=== PATIENT | male | born 1955 | race Caucasian/White ===

== ENCOUNTER → 2017-02-25 | Outpatient (CLI) | payer OTHER, MEDICARE ==
--- NOTE | 2017-02-25 15:31 | CT ---
EXAMINATION TYPE: CT brain wo con DATE OF EXAM: 02/25/2017 2:35 PM COMPARISON: NONE HISTORY: Dizziness CT DLP: 1121 mGycm Automated exposure control for dose reduction was used. FINDINGS: There is no acute intracranial hemorrhage, mass effect, or midline shift identified. The ventricles and sulci are within normal limits in size. The globes are intact and the visualized sinuses are brenda wing air-fluid level in the left maxillary sinus, mucosal thickening in the right maxillary sinus, et hmoid air cells and sphenoid. IMPRESSION: No acute intracranial hemorrhage, mass effect, or midline shift is seen. Sinusitis
--- NOTE | 2017-02-26 11:32 | ECHOF ---
Referral Reason:TIA G45.9, ABN EKG R94.31 MEASUREMENTS -------- HEIGHT: 180.3 cm WEIGHT: 81.6 kg BP: IVSd: 1.2 cm (0.6 - 1.1) LVIDd: 4.8 cm (3.9 - 5.3) LVPWd: 1.5 cm (0.6 - 1.1) IVSs: 2.0 cm LVIDs: 2.6 cm LVPWs: 2.1 cm Ao Diam: 2.8 cm (2.0 - 3.7) AV Cusp: 2.1 cm (1.5 - 2.6) LA Diam: 2.8 cm (2.7 - 3.8) MV EXCURSION: 12.364 mm (> 18.000) MV EF SLOPE: 50 mm/s (70 - 150) EPSS: 0.5 cm MV E Chandan: 1.21 m/s MV DecT: 220 ms MV A Chandan: 0.70 m/s MV E/A Ratio: 1.72 RAP: 5.00 mmHg RVSP: 17.47 mmHg FINDINGS -------- Sinus rhythm. This was a technically good study. The left ventricular size is normal. There is mild concentric left ventricular hypertrophy. Overall left ventricular systolic function is normal with, an EF between 55 - 60 %. The right ventricle is normal in size and function. The left atrium is normal in size. The right atrium is normal in size. The aortic valve is trileaflet, and appears structurally normal. No aortic stenosis or regurgitation. The mitral valve leaflets are mildly thickened. Mild mitral regurgitation is present. Mild prolapse of the posterior mitral valve leaflet. The tricuspid valve appears structurally normal. Mild tricuspid regurgitation present. The right ventricular systolic pressure, as measured by Doppler, is 17.47mmHg. There is no pulmonic regurgitation present. There is no pericardial effusion. CONCLUSIONS -------- 1. Sinus rhythm. 2. Mild tricuspid regurgitation present. 3. The right ventricular systolic pressure, as measured by Doppler, is 17.47mmHg. 4. There is no pulmonic regurgitation present. 5. There is no pericardial effusion. 6. This was a technically good study. 7. There is mild concentric left ventricular hypertrophy. 8. Overall left ventricular systolic function is normal with, an EF between 55 - 60 %. 9. The left atrium is normal in size. 10. The aortic valve is trileaflet, and appears structurally normal. No aortic stenosis or regurgitation. 11. The mitral valve leaflets are mildly thickened. 12. Mild mitral regurgitation is present. 13. Mild prolapse of the posterior mitral valve leaflet. SPONGE PRESS OPERATOR: Leta Lo RDCS
--- NOTE | 2017-03-06 07:59 | US ---
EXAMINATION TYPE: US carotid duplex BILAT DATE OF EXAM: 02/25/2017 2:08 PM COMPARISON: NONE CLINICAL HISTORY: 61-year-old male TIA G45.9, Abn EKG R94.31. TECHNIQUE: Duplex carotid ultrasound. Indirect Doppler criteria was utilized. FINDINGS: Sparks scale images show moderate atherosclerotic change at the right bifurcation and mild on the left. EXAM MEASUREMENTS: RIGHT: Peak Systolic Velocity (PSV) cm/sec ----- Right CCA: 70.2 ----- Right ICA: 248.6 ----- Right ECA: 200.4 ICA/CCA ratio: 3.5 RIGHT: End Diastole cm/sec ----- Right CCA: 18.5 ----- Right ICA: 80.5 ----- Right ECA: 30.4 LEFT: Peak Systolic Velocity (PSV) cm/sec ----- Left CCA: 88.7 ----- Left ICA: 91.9 ----- Left ECA: 143.6 ICA/CCA ratio: 1.0 LEFT: End Diastole cm/sec ----- Left CCA: 25.7 ----- Left ICA: 38.6 ----- Left ECA: 20.8 VERTEBRALS (direction of flow): Right Vertebral: Antegrade Left Vertebral: Antegrade IMPRESSION: There may be a severe proximal ICA stenosis on the right. Further CT angiographic evaluation should b e considered. Criteria for Assigning % of Stenosis / Diameter reduction (Estimation based on the indirect measurements of the internal carotid artery velocities (ICA PSV). 1. Normal (no stenosis)=ICA PSV < 125 cm/s: ratio < 2.0: ICA EDV<40 cm/s. 2. Less than 50% stenosis=ICA PSV < 125 cm/s: ratio < 2.0: ICA EDV<40 cm/s. 3. 50 to 69% stenosis=ICA PSV of 125 to 230 cm/s: ration 2.0 ? 4.0: ICA EDV 40-100 cm/s. 4. Greater than 70% stenosis to near occlusion= ICA PSV > 230 cm/s: ratio > 4.0: ICA EDV > 100 cm/s. 5. Near occlusion= ICA PSV velocities may be low or undetectable: variable ratio and ICA EDV. 6. Total occlusion=unable to detect flow.
== END ==
LOC: RADCTMAIN 13:20
PROVIDERS: ATTEND Family Medicine
DX: I07.1 Rheumatic tricuspid insufficiency (principal); I34.0 Nonrheumatic mitral (valve) insufficiency; I34.1 Nonrheumatic mitral (valve) prolapse; G45.9 Transient cerebral ischemic attack, unspecified
CPT/HCPCS: 70450; 93306; 93880

== ENCOUNTER → 2017-03-04 | Day surgery (SDC) | payer OTHER, MEDICARE ==
[2017-02-23 11:38] VITALS: BMI 25.1
[~2017-03-04] MED LIST: BUPIVACAIN-EPI 0.25%-1:200,000 30 ML VIAL SQ ONE; DEXAMETHASONE SOD PHOSPHATE 10 MG/ML 1 ML VIAL IV ONE; GLYCOPYRROLATE 0.2 MG/ML 2 ML VIAL ONE; HEPARIN SODIUM,PORCINE 5,000 UNIT/ML 1 ML VIAL SQ ONE; HYDROcodone/APAP 7.5-325MG 1 EACH TAB PO ONE; HYDROmorphone (PF) 1 MG/ML ONE; KETOROLAC 30 MG/ML 1 ML VIAL ONE; LACTATED RINGERS 1,000 ML IV ONE; LIDOCAINE 1% INJ 10MG/ML (20 ML MDV) ONE; MIDAZOLAM 2 MG/2 ML VIAL IV PRN; MIDAZOLAM 2 MG/2 ML VIAL ONE; NEOSTIGMINE 1 MG/ML 10 ML VIAL ONE; ONDANSETRON 4 MG/2 ML VIAL IVP ONE; PROPOFOL 10 MG/ML 20 ML VIAL IV ONE; ROCURONIUM BROMIDE 10 MG/ML 10 ML VIAL IV ONE; SCOPOLAMINE 1.5MG/72HR PATCH TRANSDERM ONE; SUCCINYLCHOLINE CHLORIDE 100 MG/5 ML SYR IV ONE; ceFAZolin 2 GM in SODIUM CHLORIDE 0.9% 100 ML IVPB ONE; fentaNYL (PF) 50 MCG/ML 2 ML AMP ONE
[2017-03-04] MEDS: LACTATED RINGERS 1,000 ML IV SCH ×2 (09:23→09:24)
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
--- NOTE | 2017-03-04 11:07 | P.OP ---
Date of Procedure: 03/04/17 Preoperative Diagnosis: Incarcerated umbilical hernia Left inguinal hernia Postoperative Diagnosis: Incarcerated hernia Left inguinal hernia Procedure(s) Performed: Laparoscopic repair of incarcerated umbilical hernia Laparoscopic robotic system repair of left inguinal hernia Anesthesia: CHARISSE Surgeon: Charly Block Estimated Blood Loss (ml): 5 Pathology: other (Incarcerated omentum) Condition: stable Disposition: PACU Description of Procedure: The patient was placed on the operating table in the supine position. The patient received general anesthesia. The patient's abdomen was prepped and draped in usual sterile fashion. The skin was anesthetized 1% local Xylocaine at the incision sites. Using an 11 blade a skin incision was made at the umbilicus. There was incarcerated omentum at the umbilicus. This was dissected free with the sac using the electrocautery. Once the umbilical hernia was dissected. A 12 mm trocar was placed through the umbilical hernia. Into the peritoneal cavity.. The laparoscope was placed into the pleural cavity.. And a robotic 8 mm trocar was placed in the right lateral position and then another 8 mm robotic trochars placed in the left lateral position. The original 5 mm trocar was exchanged for a 12 mm trocar. The patient was placed in reverse Trendelenburg and then the patient was docked to the robot. Next the peritoneum over top of the hernia was incised and then using blunt and sharp dissection and electrocautery the hernia sac was dissected free from the floor of the inguinal canal. The hernia sac was completely reduced into the peritoneal cavity. And then using the Pro final inspector shuttle mesh the hernia was repaired. The peritoneum was then sutured with 20V lock suture. The patient was then undocked the robot. The needle was withdrawn from the peritoneal cavity. The umbilical hernia was closed using 0 Ethibond suture and Sean Carrero suture passer. The skin was closed interrupted 3-0 Monocryl suture. Dermabond dressing was applied. Patient was sent to recovery in stable condition.
[2017-03-04 11:25] VITALS: TEMP 98.9
[2017-03-04] MEDS: HYDROmorphone 1 MG/ML 1 ML SYRINGE IVP PRN ×2 (11:33→11:40)
[2017-03-04] MEDS: MEPERIDINE 50 MG/ML SYRINGE IVP ONE ×2 (11:46→11:55)
[2017-03-04 12:57] VITALS: RESP 18
[2017-03-04 14:28] VITALS: BP 168/74; PULSE 62
== END | disposition home or self-care (01) ==
LOC: OR 08:20
PROVIDERS: ATTEND Surgery
DX: K42.0 Umbilical hernia with obstruction, without gangrene (principal); K40.90 Unilateral inguinal hernia, without obstruction or gangrene, not specified as recurrent; I77.9 Disorder of arteries and arterioles, unspecified; Z79.82 Long term (current) use of aspirin; Z79.899 Other long term (current) drug therapy; Z88.5 Allergy status to narcotic agent; Z91.041 Radiographic dye allergy status
CPT/HCPCS: 49587; 49650; S2900; 88302; 88305

== ENCOUNTER 2017-07-13 07:54 | Day surgery (SDC) | payer OTHER, MEDICARE ==
[2017-07-10 09:30] VITALS: BMI 25.1
[~2017-07-13 07:54] MED LIST changes: -BUPIVACAIN-EPI 0.25%-1:200,000 30 ML VIAL SQ ONE; -DEXAMETHASONE SOD PHOSPHATE 10 MG/ML 1 ML VIAL IV ONE; -GLYCOPYRROLATE 0.2 MG/ML 2 ML VIAL ONE; -HEPARIN SODIUM,PORCINE 5,000 UNIT/ML 1 ML VIAL SQ ONE; -HYDROcodone/APAP 7.5-325MG 1 EACH TAB PO ONE; -HYDROmorphone (PF) 1 MG/ML ONE; -KETOROLAC 30 MG/ML 1 ML VIAL ONE; -LACTATED RINGERS 1,000 ML IV ONE; +LACTATED RINGERS 1,000 ML IV SCH; -LIDOCAINE 1% INJ 10MG/ML (20 ML MDV) ONE; -MIDAZOLAM 2 MG/2 ML VIAL IV PRN; -MIDAZOLAM 2 MG/2 ML VIAL ONE; -NEOSTIGMINE 1 MG/ML 10 ML VIAL ONE; -ONDANSETRON 4 MG/2 ML VIAL IVP ONE; -PROPOFOL 10 MG/ML 20 ML VIAL IV ONE; -ROCURONIUM BROMIDE 10 MG/ML 10 ML VIAL IV ONE; -SCOPOLAMINE 1.5MG/72HR PATCH TRANSDERM ONE; -SUCCINYLCHOLINE CHLORIDE 100 MG/5 ML SYR IV ONE; -ceFAZolin 2 GM in SODIUM CHLORIDE 0.9% 100 ML IVPB ONE; -fentaNYL (PF) 50 MCG/ML 2 ML AMP ONE
[2017-07-13 08:04] VITALS: RESP 18; TEMP 98
[2017-07-13] MEDS ORDERED: LIDOCAINE 1% 20 ML VIAL (10MG/ML) FOR IV START INTRADERMA ONE (08:05)
[2017-07-13] MEDS ORDERED: PROPOFOL 10 MG/ML 20 ML VIAL IV ONE (09:42)
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
--- NOTE | 2017-07-13 09:56 | P.OP ---
Date of Procedure: 07/13/17 Preoperative Diagnosis: Screening colonoscopy Postoperative Diagnosis: Diverticulosis Hemorrhoids Procedure(s) Performed: Colonoscopy Implants: Anesthesia: MAC Surgeon: Charly Block Pathology: none sent Condition: stable Disposition: PACU Indications for Procedure: Operative Findings: Description of Procedure: Patient's placed on the endoscopy table in the lateral position. He received IV sedation. Digital rectal exam was performed which revealed mild external hemorrhoids. The flexible colonoscope was then placed patient anus and passed throughout the entire colon. The ileocecal valve was visualized. The cecum, ascending and transverse colon appeared normal. In the descending and sigmoid colon there is mild diverticular changes. There is no evidence of to diverticulitis. The scope was then brought back the rectum and this appeared normal. Scope was withdrawn from the patient.
[2017-07-13 10:42] VITALS: BP 201/98; PULSE 51
== END 2017-07-13 10:49 | disposition home or self-care (01) ==
LOC: ORWHC2ENDO 07:54
PROVIDERS: ATTEND Surgery
DX: Z12.11 Encounter for screening for malignant neoplasm of colon (principal); K57.30 Diverticulosis of large intestine without perforation or abscess without bleeding; K64.4 Residual hemorrhoidal skin tags; M54.9 Dorsalgia, unspecified; M25.569 Pain in unspecified knee; G89.29 Other chronic pain; Z91.041 Radiographic dye allergy status
CPT/HCPCS: J2704; G0121; 45378

== ENCOUNTER → 2018-09-01 | Outpatient (CLI) | payer OTHER, MEDICARE ==
--- NOTE | 2018-09-01 14:56 | MM ---
Reason for exam: clinical finding. Baseline mammogram. History: Family history of breast cancer in maternal grandmother at age 54. Indicated problem(s): lump or thickening in the right breast. Physical Findings: Nurse Summary: 1cm nodule in the right breast at 12 o'clock (nurse mj). MG 3D Diag Mammo W/Cad MELLO Bilateral CC and MLO view(s) were taken. There are scattered fibroglandular densities. Asymmetric flamed shaped subareolar density on the right. This corresponds to the palpable site. 5mm mass posteriorly 3-4 o'clock left breast. Similar smaller finding on the right. These seem to be reniform in shape suggesting small lymph nodes. These results were verbally communicated with the patient and result sheet given to the patient on 09/01/18. ASSESSMENT: Incomplete: need additional imaging evaluation, BI-RAD 0 RECOMMENDATION: Ultrasound of both breasts. MTDD
--- NOTE | 2018-09-01 15:01 | USB ---
Reason for exam: additional evaluation requested from abnormal screening. History: Family history of breast cancer in maternal grandmother at age 54. US Breast BILAT Right complete breast ultrasound includes all four quadrants, the retroareolar region and axilla. Finding demonstrates a 0.5cm tiny lymph node compatible with mammographic finding and a 1.0 x 0.4 x 1.2cm irregular hypoechoic area compatible with gynecomastia seen on ultrasound. Left complete breast ultrasound includes all four quadrants, the retroareolar region and axilla. Finding demonstrates a 0.3 x 0.2 x 0.4cm small benign node, compatible with mammographic finding at 3 o'clock and at axilla. These results were verbally communicated with the patient and result sheet given to the patient on 09/01/18. ASSESSMENT: Benign, BI-RAD 2 RECOMMENDATION: Clinical management of asymmetric right sided gynecomastia which corresponds to the clinically palpable site. GAYED
== END | disposition home or self-care (01) ==
LOC: RADMAMWWP 13:06
PROVIDERS: ATTEND Family Medicine
DX: N63.0 Unspecified lump in unspecified breast (principal)
CPT/HCPCS: 77062; 77066

== ENCOUNTER 2021-08-10 10:05 | Inpatient (IN) | payer MEDICARE, BC ==
[2021-08-10 10:37] LABS: Glucose,Whole Blood 111 mg/dL (75-99)
[2021-08-10] MEDS ORDERED: SODIUM CHLORIDE 0.9% 1,000 ML IV STA (10:39)
[2021-08-10] MEDS ORDERED: ONDANSETRON 4 MG/2 ML VIAL IVP STA (10:43)
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
[2021-08-10 11:16] LABS: Basophils # (A) 0.1 k/uL (0-0.2); Basophils % (A) 1 %; Eosinophils % (A) 0 %; HCT 46.3 % (39.0-53.0); HGB 15.5 gm/dL (13.0-17.5); Lymphocytes # (A) 0.7 k/uL (1.0-4.8); Lymphocytes % (A) 9 %; MCH 29.9 pg (25.0-35.0); MCHC 33.5 g/dL (31.0-37.0); MCV 89.4 fL (80.0-100.0); Mean Platelet Volume 8.5; Monocytes # (A) 0.4 k/uL (0-1.0); Monocytes % (A) 5 %; Neutrophils # (A) 6.7 k/uL (1.3-7.7); Neutrophils % (A) 84 %; Platelet Count 232 k/uL (150-450); RBC 5.18 m/uL (4.30-5.90); RDW 13.4 % (11.5-15.5)
[2021-08-10 11:17] LABS: Appearance,Urine Clear (Clear); Bacteria,Urine Rare /hpf; Bilirubin,Urine Negative (Negative); Blood,Urine Trace (Negative); Color,Urine Light Yellow; Glucose,Urine (UA) 1+ (Negative); Ketones,Urine Negative (Negative); Leukocyte Esterase,Urine Negative (Negative); Mucus,Urine Rare /hpf; Nitrite,Urine Negative (Negative); PH, Urine 6.5 (5.0-8.0); Protein,Urine 1+ (Negative); RBC,Urine 1 /hpf (0-5); Specific Gravity,Urine 1.013 (1.001-1.035); Squamous Epithelial Cell,Urine <1 /hpf (0-4); Urobilinogen,Urine <2.0 mg/dL (<2.0); WBC,Urine <1 /hpf (0-5)
[2021-08-10 11:24] LABS: ALT 16 U/L (4-49); AST 30 U/L (17-59); African American GFR (CKD) >90 (>60 ml/min/1.73 sqM); Albumin 4.6 g/dL (3.5-5.0); Alcohol <10 mg/dL; Alkaline Phosphatase 95 U/L (38-126); Anion Gap 10 mmol/L; Blood Urea Nitrogen 10 mg/dL (9-20); Carbon Dioxide 26 mmol/L (22-30); Chloride 103 mmol/L (98-107); Glucose 118 mg/dL (74-99); Magnesium 2.4 mg/dL (1.6-2.3); Non-African American GFR(CKD) 84 (>60 ml/min/1.73 sqM); Potassium 3.8 mmol/L (3.5-5.1); Sodium 139 mmol/L (137-145); Total Protein 7.7 g/dL (6.3-8.2)
[2021-08-10 11:43] LABS: Amphetamine Screen,Urine Not Detected (NotDetected); Cocaine Screen,Urine Not Detected (NotDetected); Opiate Screen,Urine Not Detected (NotDetected); Phencyclidine Screen,Urine Not Detected (NotDetected); Urn Cannabinoid Scrn Detected (NotDetected)
[2021-08-10 11:44] LABS: Barbiturate Screen,Urine Not Detected (NotDetected); Benzodiazepines Screen,Urine Detected (NotDetected); Methadone Screen, Urine Not Detected (NotDetected); Oxycodone Screen, Urine Not Detected (NotDetected); Tricyclic Antidepressant,Urine Not Detected (NotDetected)
--- NOTE | 2021-08-10 12:03 | XR ---
EXAMINATION TYPE: XR chest 2V DATE OF EXAM: 08/10/2021 COMPARISON: Chest x-ray May 06, 2013 HISTORY: Cough and seizure. TECHNIQUE: Frontal and lateral views of the chest are obtained. FINDINGS: There is no suspicious new focal air space opacity, pleural effusion, or pneumothorax seen . The cardiac silhouette size is now enlarged. The osseous structures are intact. IMPRESSION: Cardiomegaly without acute pulmonary process.
--- NOTE | 2021-08-10 12:04 | CT ---
EXAMINATION TYPE: CT brain wo con DATE OF EXAM: 08/10/2021 HISTORY: seizure CT DLP: 1041.4 mGycm. Automated Exposure Control for Dose Reduction was Utilized. TECHNIQUE: CT scan of the head is performed without contrast. COMPARISON: CT brain February 25, 2017. FINDINGS: There is no acute intracranial hemorrhage or midline shift identified. There is mild diff use ventricular and sulcal prominence consistent with mild diffuse age-related cerebral atrophy. Sparks -white matter differentiation is maintained. The globes are intact and the visualized sinuses are cl ear. Nasal septum remains deviated to right of midline. IMPRESSION: No acute intracranial hemorrhage or midline shift. No significant change from prior.
[2021-08-10] MEDS ORDERED: ASPIRIN 81 MG PO STA (12:14)
[2021-08-10] MEDS ORDERED: levETIRAcetam IV 500 MG in SODIUM CHLORIDE 0.9% 100 ML IVPB STA (12:34)
[2021-08-10] MEDS ORDERED: ONDANSETRON 4 MG/2 ML VIAL IVP PRN (12:53)
[2021-08-10] MEDS ORDERED: NALOXONE 0.4 MG/ML 1 ML VIAL IV PRN (12:53)
[2021-08-10] MEDS: SODIUM CHLORIDE 0.9% 1,000 ML IV SCH (13:00)
[2021-08-10] MEDS ORDERED: diazePAM 5 MG TAB PO PRN (18:26)
[2021-08-10] MEDS: HYDROcodone/APAP 5-325MG 1 EACH TAB PO PRN (18:37)
--- NOTE | 2021-08-10 18:47 | XR ---
EXAMINATION TYPE: XR foot complete LT DATE OF EXAM: 08/10/2021 CLINICAL HISTORY: New onset seizure, history of metal, clearance for MRI TECHNIQUE: Frontal, lateral, and oblique images of the left foot are obtained. COMPARISON: Left foot radiographs 12/27/2013 FINDINGS: Unchanged appearance of postsurgical changes of the left hindfoot and midfoot with four metallic fixa tion hardware devices with osseous fusion of the midfoot. The anteromedial most device has lucency haynes rrounding the most distal component which may represent loosening. There is planus is present. Unchan ged plaque-like calcifications of the left leg soft tissues adjacent to the fibula. No acute fracture or malalignment. IMPRESSION: 1. Essentially unchanged appearance of four metallic fixation hardware devices of the hindfoot and mi dfoot compared to 2013. 2. Lucency surrounding the distal component of the most anteromedial device which may represent loose anna. This is difficult to evaluate on the prior exam due to single view technique.
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
[2021-08-11] MEDS: HYDROcodone/APAP 5-325MG 1 EACH TAB PO PRN ×2 (00:20→18:03)
[2021-08-11] MEDS: SODIUM CHLORIDE 0.9% 1,000 ML IV SCH ×2 (00:21→11:46)
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
[2021-08-11 09:19] LABS: Basophils % (A) 1 %; Eosinophils # (A) 0.1 k/uL (0-0.7); Eosinophils % (A) 1 %; HCT 40.9 % (39.0-53.0); HGB 13.6 gm/dL (13.0-17.5); Lymphocytes # (A) 1.6 k/uL (1.0-4.8); Lymphocytes % (A) 22 %; MCH 29.8 pg (25.0-35.0); MCHC 33.1 g/dL (31.0-37.0); Mean Platelet Volume 7.8; Monocytes # (A) 0.4 k/uL (0-1.0); Monocytes % (A) 6 %; Neutrophils % (A) 69 %; Platelet Count 231 k/uL (150-450); RBC 4.55 m/uL (4.30-5.90); WBC 7.2 k/uL (3.8-10.6)
[2021-08-11 09:37] LABS: African American GFR (CKD) >90 (>60 ml/min/1.73 sqM); Anion Gap 5 mmol/L; Blood Urea Nitrogen 8 mg/dL (9-20); Calcium 9.1 mg/dL (8.4-10.2); Carbon Dioxide 28 mmol/L (22-30); Chloride 106 mmol/L (98-107); Glucose 117 mg/dL (74-99); Non-African American GFR(CKD) 86 (>60 ml/min/1.73 sqM); Potassium 3.7 mmol/L (3.5-5.1); Sodium 139 mmol/L (137-145)
--- NOTE | 2021-08-11 14:51 | MR ---
EXAMINATION TYPE: MR brain wo/w con DATE OF EXAM: 08/11/2021 COMPARISON: Head CT 08/10/2021 HISTORY: Seizure, hx head injury S/P fall. TECHNIQUE: Multiplanar, multisequence images of the brain and brainstem is performed without and with IV contras t, utilizing 9 mL intravenous Gadavist . FINDINGS: Diffusion weighted images demonstrate no evidence of a recent infarct or other diffusion abnormality. No extra-axial fluid collections. Few scattered foci of nonspecific increased FLAIR/T2 signal in the bilateral subcortical white matter likely chronic small vessel ischemic white matter change. The yuri tricular system and cisternal spaces are normal in size and appearance. The brain volume is age appr opriate. T2*imaging does not demonstrate any areas of chronic microhemorrhage. Midline structures demonstrate normal morphology. The craniocervical junction appears within normal limits. Hippocampi are essentially symmetric in size without abnormal signal. Post contrast images de monstrate no abnormal enhancement. The dural venous sinuses appear patent. Mild right maxillary and e thmoid sinus mucosal thickening. Mastoid air cells are clear. Bilateral globes are symmetric and unre markable. IMPRESSION: 1. No acute intracranial process or abnormal pathologic enhancement. 2. No evidence of mesial temporal sclerosis.
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
[2021-08-11] MEDS: amLODIPine 5 MG TAB PO SCH (23:43)
[2021-08-11] MEDS: HEPARIN SODIUM,PORCINE/PF 5,000 UNIT/0.5 ML SYRINGE SQ SCH ×2 (23:43→23:44)
[2021-08-12] MEDS: ASPIRIN 81 MG PO SCH (08:19)
[2021-08-12] MEDS: HEPARIN SODIUM,PORCINE/PF 5,000 UNIT/0.5 ML SYRINGE SQ SCH ×2 (08:19→15:35)
[2021-08-12 08:37] LABS: Basophils # (A) 0.1 k/uL (0-0.2); Basophils % (A) 1 %; Eosinophils # (A) 0.2 k/uL (0-0.7); Eosinophils % (A) 2 %; HCT 45.9 % (39.0-53.0); HGB 15.3 gm/dL (13.0-17.5); Lymphocytes # (A) 1.9 k/uL (1.0-4.8); Lymphocytes % (A) 24 %; MCH 29.9 pg (25.0-35.0); MCHC 33.4 g/dL (31.0-37.0); MCV 89.7 fL (80.0-100.0); Mean Platelet Volume 8.3; Monocytes # (A) 0.5 k/uL (0-1.0); Monocytes % (A) 7 %; Neutrophils # (A) 5.2 k/uL (1.3-7.7); Neutrophils % (A) 66 %; Platelet Count 251 k/uL (150-450); RBC 5.12 m/uL (4.30-5.90); RDW 13.3 % (11.5-15.5); WBC 7.9 k/uL (3.8-10.6)
[2021-08-12 08:43] LABS: African American GFR (CKD) >90 (>60 ml/min/1.73 sqM); Anion Gap 11 mmol/L; Blood Urea Nitrogen 8 mg/dL (9-20); Calcium 9.7 mg/dL (8.4-10.2); Carbon Dioxide 23 mmol/L (22-30); Chloride 105 mmol/L (98-107); Glucose 142 mg/dL (74-99); Non-African American GFR(CKD) 88 (>60 ml/min/1.73 sqM); Potassium 3.8 mmol/L (3.5-5.1); Sodium 139 mmol/L (137-145)
--- NOTE | 2021-08-12 10:50 | ECHOF ---
Referral Reason:Elevated trop MEASUREMENTS -------- HEIGHT: 182.9 cm WEIGHT: 82.6 kg BP: IVSd: 1.4 cm (0.6 - 1.1) LVIDd: 4.9 cm (3.9 - 5.3) LVPWd: 1.8 cm (0.6 - 1.1) IVSs: 1.8 cm LVIDs: 3.5 cm LVPWs: 1.6 cm LA Diam: 3.7 cm (2.7 - 3.8) LAESV Index (A-L): 43.82 ml/m Ao Diam: 3.5 cm (2.0 - 3.7) AV Cusp: 1.9 cm (1.5 - 2.6) MV EXCURSION: 15.965 mm (> 18.000) MV EF SLOPE: 60 mm/s (70 - 150) EPSS: 0.3 cm MV E Chandan: 1.13 m/s MV DecT: 262 ms MV A Chandan: 0.74 m/s MV E/A Ratio: 1.53 RAP: 5.00 mmHg RVSP: 18.32 mmHg FINDINGS -------- Sinus rhythm. This was a technically good study. The left ventricular size is normal. There is moderate concentric left ventricular hypertrophy. O verall left ventricular systolic function is low-normal with, an EF between 50 - 55 %. The right ventricle is normal in size. LA is severely dilated >40 ml/m2 The right atrial size is normal. The aortic valve is trileaflet, and appears structurally normal. No aortic stenosis or regurgitation. Mild mitral regurgitation is present. Mild tricuspid regurgitation present. Right ventricular systolic pressure is normal at < 35 mmHg. There is no pulmonic regurgitation present. There is no pericardial effusion. CONCLUSIONS -------- 1. The left ventricular size is normal. 2. There is moderate concentric left ventricular hypertrophy. 3. Overall left ventricular systolic function is low-normal with, an EF between 50 - 55 %. 4. The right ventricle is normal in size. 5. LA is severely dilated >40 ml/m2 6. The right atrial size is normal. 7. The aortic valve is trileaflet, and appears structurally normal. No aortic stenosis or regurgitati on. 8. Mild mitral regurgitation is present. 9. Mild tricuspid regurgitation present. 10. There is no pericardial effusion. COLLISION REPAIRER: Hillary Rubi RDCS
--- NOTE | 2021-08-12 12:47 | P.PN ---
Subjective Progress Note Date: 08/12/21 Principal diagnosis: The patient is here essentially because of witnessed seizure/tonic-clonic activity. The patient has no recollection of this occurring. The patient has been placed on seizure precautions and is now doing well. No continued activity. EEG is pending. The patient has significant normal lucidity stated. No voiding difficulties. No stomach nausea, vomiting or diarrhea Objective - Vital Signs Vital signs: Vital Signs Temp 98.6 F 08/12/21 08:00 Pulse 64 08/12/21 08:00 Resp 16 08/12/21 08:00 BP 160/90 08/12/21 08:00 Pulse Ox 99 08/12/21 08:00 Intake & Output 08/11/21 08/12/21 08/12/21 18:59 06:59 18:59 Intake Total 1900 836 Output Total 200 650 Balance 1700 -650 836 Weight 82.7 kg Intake: IV 600 600 Sodium Chloride 0.9% 1, 600 600 000 ml @ 75 mls/hr IV . [id number] [facility] Rx#:[id number] Oral 1300 236 Output: Urine 200 650 Other: # Voids 1 # Bowel Movements 1 - Constitutional General appearance: Present: average body habitus - EENT Eyes: Absent: abnormal pupil ENT: Present: hearing grossly normal. Absent: hard of hearing - Neck Neck: Absent: lymphadenopathy - Respiratory Respiratory: bilateral: CTA - Cardiovascular Rhythm: regular Heart sounds: normal: S1, S2 Abnormal Heart Sounds: Absent: S3 Gallop - Gastrointestinal General gastrointestinal: Present: soft. Absent: tenderness - Musculoskeletal Musculoskeletal: Present: strength equal bilaterally - Psychiatric Psychiatric: Present: appropriate affect - Labs CBC & Chem 7: 08/12/21 07:44 08/12/21 07:44 Labs: Abnormal Lab Results - Last 24 Hours (Table) 08/12/21 Range/Units 07:44 BUN 8 L (9-20) mg/dL Glucose 142 H (74-99) mg/dL Assessment and Plan (1) New onset seizure Current Visit: Yes Status: Acute Code(s): R56.9 - UNSPECIFIED CONVULSIONS SNOMED Code(s): 71459287 Plan: Continue seizure precautions. Appreciate neurology input. Question need for antiepileptic medication. See orders otherwise.
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
--- NOTE | 2021-08-12 14:46 | EEG ---
ELECTROENCEPHALOGRAM REPORT DATE OF SERVICE: 08/12/2021. CLINICAL HISTORY: This is a 66-year-old gentleman with new-onset seizure. The EEG is obtained to evaluate for seizure epileptiform activity. Relevant medication: The patient is not on any antiepileptic drug. EEG TYPE: A routine 21-channel EEG is performed with video using the 10/20 electrode placement system. DESCRIPTION: Wakefulness and drowsiness are obtained. During wakefulness there is a posterior- dominant rhythm of low to moderate voltage of 9-10 hertz activity. During drowsiness there is slowing attenuation of the background activity. There is no stage 2 sleep architecture seen. There is no focal slowing seen. Interictal and ictal is none. ACTIVATION PROCEDURE: Photic stimulation did not evoke a posterior driving response. There is no abnormality during the photic stimulation. Hyperventilation is not performed. CLINICAL INTERPRETATION: This is a normal routine EEG. There are no focal slowing, epileptiform discharges or seizure on the EEG. Clinical correlation is recommended. NORAH / DANIELA: [id number] / MTDD
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
[2021-08-12] MEDS: amLODIPine 5 MG TAB PO SCH (15:10)
[2021-08-12] MEDS ORDERED: amLODIPine 5 MG TAB PO STA (15:24)
[2021-08-12 17:00] LABS: Chol/HDL Ratio 4.29; Cholesterol 210 mg/dL (0-200); LDL Cholesterol,Calculated 130.2 mg/dL (0.0-131.0)
[2021-08-12] MEDS ORDERED: hydrALAZINE HCL 20 MG/ML 1 ML VIAL IVP STA (17:46)
[2021-08-13] MEDS: HEPARIN SODIUM,PORCINE/PF 5,000 UNIT/0.5 ML SYRINGE SQ SCH ×2 (00:22→08:47)
--- NOTE | 2021-08-13 08:38 | P.DS ---
Providers Date of admission: 08/10/21 12:27 Attending physician: Ravi Ross Consults: 08/10/21 12:53 Consult Physician Routine Consulting Provider: Doris Gaspar Consult Reason/Comments: New-onset seizure Do you want consulting provider notified?: Yes 08/11/21 22:10 Consult Physician Routine Consulting Provider: Mike Kearns Consult Reason/Comments: Elevated troponin Do you want consulting provider notified?: Yes, Notify in am Primary care physician: Ravi Ross - Discharge Diagnosis(es) (1) New onset seizure Current Visit: Yes Status: Acute Assessment: The patient is a 66-year-old white male essentially admitted for epileptic activity time, seizure. The patient was stabilized with seizure precautions and had neurology consult. He developed hypertensive urgency during this hospital station. I suspect he has issues with noncompliance with his blood pressure medication as I haven't seen him in a bit. The patient was stabilized on hydralazine and will be sent home with Norvasc and hydralazine by mouth. Patient Condition at Discharge: Fair Plan - Discharge Summary Discharge Rx Participant: No New Discharge Prescriptions: New Aspirin 81 mg PO DAILY amLODIPine [Norvasc] 5 mg PO HS tab hydrALAZINE HCL [Apresoline] 25 mg PO TID #90 tab Discharge Medication List Aspirin 81 mg PO DAILY 08/12/21 [Rx] amLODIPine [Norvasc] 5 mg PO HS tab 08/12/21 [Rx] hydrALAZINE HCL [Apresoline] 25 mg PO TID #90 tab 08/13/21 [Rx] Follow up Appointment(s)/Referral(s): Abrahan Monge DO [STAFF PHYSICIAN] - 08/20/21 3:15 am Ravi Ross MD [Primary Care Provider] - 08/13/21 9:20 am Patient Instructions/Handouts: Seizure/Epilepsy Discharge Instructions & Follow-Up Discharge Disposition: HOME SELF-CARE
[2021-08-13] MEDS: ASPIRIN 81 MG PO SCH (08:47)
[2021-08-13 08:53] VITALS: BP 163/80; PULSE 74; RESP 18; TEMP 98.8
== END 2021-08-13 10:46 | disposition home or self-care (01) | DRG 101 ==
LOC: EC 10:05 → 3SCARD 12:27
PROVIDERS: ADMIT Family Medicine; ATTEND Family Medicine
DX: R56.9 Unspecified convulsions (principal); G89.29 Other chronic pain; Z20.822 Contact with and (suspected) exposure to COVID-19; Z79.899 Other long term (current) drug therapy; Y92.410 Unspecified street and highway as the place of occurrence of the external cause; Z80.6 Family history of leukemia; Z87.442 Personal history of urinary calculi; Z87.891 Personal history of nicotine dependence; W01.0XXA Fall on same level from slipping, tripping and stumbling without subsequent striking against object, initial encounter; I10 Essential (primary) hypertension; G83.11 Monoplegia of lower limb affecting right dominant side; I16.0 Hypertensive urgency; F12.90 Cannabis use, unspecified, uncomplicated; M54.9 Dorsalgia, unspecified
CPT/HCPCS: 36415; 70450; 70553; 71046; 80048; 80053; 80061; 80306; 80320; 81001; 83605; 83735; 84443; 84484; 85025; 87635; 93005; 93306; 95816; 96360; 99285

== ENCOUNTER → 2021-11-18 | Outpatient (CLI) | payer MEDICARE, BC ==
--- NOTE | 2021-11-18 07:30 | MR ---
EXAMINATION TYPE: MR lumbar spine wo/w con DATE OF EXAM: 11/18/2021 COMPARISON: NONE HISTORY: Rt foot drop, l5 radiculopathy, rt side back pain into rt leg TECHNIQUE: Multiplanar, multisequence images of the lumbar spine is performed without and with IV contrast, util izing 9 mL intravenous Gadavist FINDINGS: Sagittal images of the lumbar spine show vertebral body heights and alignment to appear sat isfactory. Multilevel disc desiccation is present. Moderate disc space narrowing L4-L5 and L5-S1 leve ls with heterogeneous Modic type II endplate changes at L4-L5 level and mild to moderate anterior spu rring The conus medullaris is normal in position and signal ending at mid L1 level. No abnormal post contrast enhancement is seen. Axial images show mild facet arthropathy at T12-L1 through L2-L3 levels the spinal canal is preserved . Axial images at L3-L4 level show mild broad disc bulge with broad-based left lateral disc protrusion component. There is moderate facet arthropathy and ligamentum flavum hypertrophy. There is minimal ef facement of the anterior thecal sac and more prominent effacement of the bilateral posterior lateral thecal sac on axial image 13. There is [id number] bilateral anterior inferior neural foraminal narrowing. Axial images at L4-L5 level moderate facet arthropathy and ligament flavum hypertrophy effacing poste rior lateral thecal sac. There is mild to moderate broad disc bulge with central disc protrusion effa cing the anterior thecal sac. There is [id number] bilateral anterior inferior neural foraminal narrowing. Axial images at the L5-S1 level show mild/moderate facet arthropathy bilaterally. There is focal cent ral disc protrusion but spinal canal is preserved and there is increased epidural fat. Right-sided ne ural foramen is patent. Left side shows mild to moderate inferior neural foraminal narrowing due to f oraminal disc herniation extension axial image 3. Paraspinal muscle bulk is maintained. Single enhancing lumbosacral nerve root left of midline is nons pecific. IMPRESSION: [id number] multilevel degenerative changes greatest in the mid to lower lumbar spin e as detailed above.
== END | disposition home or self-care (01) ==
LOC: RADMRIMAIN 05:45
PROVIDERS: ATTEND Psychiatry & Neurology Neurology
DX: M51.17 Intervertebral disc disorders with radiculopathy, lumbosacral region (principal); M47.26 Other spondylosis with radiculopathy, lumbar region; M99.73 Connective tissue and disc stenosis of intervertebral foramina of lumbar region
CPT/HCPCS: 72158; A9585

== ENCOUNTER 2021-11-19 16:18 | Inpatient (IN) | payer MEDICARE, BC ==
[2021-11-19] MEDS ORDERED: ACETAMINOPHEN TAB 500 MG TAB PO STA (17:29)
[2021-11-19] MEDS ORDERED: ASPIRIN 81 MG PO STA (17:29)
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
[2021-11-19 17:57] LABS: Basophils # (A) 0.1 k/uL (0-0.2); Basophils % (A) 0 %; Eosinophils # (A) 0.1 k/uL (0-0.7); Eosinophils % (A) 0 %; Lymphocytes # (A) 1.8 k/uL (1.0-4.8); Lymphocytes % (A) 13 %; MCHC 32.5 g/dL (31.0-37.0); MCV 92.4 fL (80.0-100.0); Monocytes # (A) 0.7 k/uL (0-1.0); Monocytes % (A) 5 %; Neutrophils # (A) 11.5 k/uL (1.3-7.7); Neutrophils % (A) 81 %; Platelet Count 296 k/uL (150-450); RBC 4.98 m/uL (4.30-5.90); RDW 13.7 % (11.5-15.5); WBC 14.2 k/uL (3.8-10.6)
--- NOTE | 2021-11-19 18:01 | XR ---
EXAMINATION TYPE: XR chest 2V DATE OF EXAM: 11/19/2021 COMPARISON: 08/10/2021 HISTORY: Chest pain TECHNIQUE: FINDINGS: There is no heart failure nor confluent pneumonic infiltrate. Costophrenic angles are clear . There are no hilar masses. Bony thorax is intact. IMPRESSION: No active cardiopulmonary disease. No adverse change.
[2021-11-19 18:05] LABS: Chloride 104 mmol/L (98-107)
[2021-11-19 18:08] LABS: ALT 17 U/L (4-49); AST 28 U/L (17-59); African American GFR (CKD) >90 (>60 ml/min/1.73 sqM); Albumin 4.6 g/dL (3.5-5.0); Alkaline Phosphatase 100 U/L (38-126); Amylase 65 U/L (30-110); Anion Gap 11 mmol/L; Blood Urea Nitrogen 16 mg/dL (9-20); Calcium 9.9 mg/dL (8.4-10.2); Carbon Dioxide 22 mmol/L (22-30); Glucose 111 mg/dL (74-99); Lipase 55 U/L (23-300); Magnesium 2.2 mg/dL (1.6-2.3); Non-African American GFR(CKD) 81 (>60 ml/min/1.73 sqM); Potassium 3.7 mmol/L (3.5-5.1); Sodium 137 mmol/L (137-145); Total Bilirubin 0.8 mg/dL (0.2-1.3); Total Protein 7.4 g/dL (6.3-8.2)
[2021-11-19 18:24] LABS: INR 0.9 (<1.2)
[2021-11-19 18:25] LABS: Partial Thromboplastin Time 22.1 sec (22.0-30.0); Prothrombin Time 9.7 sec (9.0-12.0)
[2021-11-19] MEDS ORDERED: methylPREDNISolone SOD SUCCI 125 MG/2 ML VIAL IV STA (18:42)
[2021-11-19] MEDS ORDERED: FAMOTIDINE 20 MG/2 ML VIAL IV STA (18:42)
[2021-11-19] MEDS ORDERED: diphenhydrAMINE 50 MG/ML 1 ML VIAL IVP STA (18:42)
--- NOTE | 2021-11-19 20:05 | CT ---
EXAMINATION TYPE: CT angio chest DATE OF EXAM: 11/19/2021 COMPARISON: None HISTORY: chest pain CT DLP: 374.8 mGycm Automated exposure control for dose reduction was used. CONTRAST: Performed with IV Contrast, patient injected with 100 mL of Isovue 370. Images obtained from the thoracic inlet to the diaphragm with IV contrast. There are 3-D post process ed images. The lungs are clear of infiltrate. There is no evidence of a pulmonary mass. There is no mediastinal adenopathy. There are no hilar masses. Thoracic aorta is intact. There is no aneurysm or dissection. Heart size is normal. There is no pericardial effusion. Upper abdominal soft tissues appear intact. There is some spurring in the mid and lower thoracic spine. There is no compression fracture. Sternum is intact. I see no bony destructive process. There is normal contrast opacification of the pulmonary arteries. There are no filling defects. IMPRESSION: Negative exam. No evidence of pulmonary embolism.
[2021-11-19] MEDS ORDERED: NITROGLYCERIN SL TABS 0.4 MG TAB SUBLINGUAL PRN (20:14)
[2021-11-19] MEDS ORDERED: HEPARIN SODIUM 1,000 UN/ML (10ML VL) IV ONE (23:41)
[2021-11-19] MEDS ORDERED: HEPARIN SODIUM 1,000 UN/ML (10ML VL) IV PRN (23:41)
[2021-11-19] MEDS ORDERED: HEPARIN SOD,PORK IN 0.45% NACL 25,000 UNIT in 0.45% NACL 1 250ML.BAG IV SCH (23:45)
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
[2021-11-20] MEDS ORDERED: amLODIPine 5 MG TAB PO SCH (09:00)
[2021-11-20] MEDS ORDERED: ASPIRIN 81 MG PO SCH (09:00)
[2021-11-20] MEDS ORDERED: ASPIRIN 325 MG TAB PO SCH (09:00)
[2021-11-20] MEDS ORDERED: ALPRAZolam 0.5 MG TAB PO PRN (09:57)
[2021-11-20] MEDS ORDERED: ALPRAZolam 0.25 MG TAB PO PRN (09:57)
[2021-11-20] MEDS ORDERED: ATORVASTATIN 80 MG TAB PO STA (09:57)
[2021-11-20] MEDS ORDERED: SODIUM CHLORIDE 0.9% 1,000 ML in EMPTY BAG 1 BAG IV SCH (10:00)
[2021-11-20] MEDS ORDERED: diphenhydrAMINE 50 MG/ML 1 ML VIAL IVP ONE (10:10)
[2021-11-20] MEDS ORDERED: FAMOTIDINE 20 MG/2 ML VIAL IV ONE (10:10)
[2021-11-20] MEDS ORDERED: methylPREDNISolone SOD SUCCI 125 MG/2 ML VIAL IV ONE (10:10)
[2021-11-20] MEDS ORDERED: ASPIRIN 81 MG PO STA (10:15)
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
[2021-11-20 11:47] LABS: Chol/HDL Ratio 3.88 Ratio; LDL Cholesterol,Calculated 134.7 mg/dL (0.0-131.0); VLDL Calculation 13.66 mg/dL (5.00-40.00)
[2021-11-20] MEDS ORDERED: LIDOCAINE 1% INJ 10MG/ML (20 ML MDV) ONE (11:49)
[2021-11-20] MEDS ORDERED: VERAPAMIL 2.5 MG/ML 2 ML AMP ONE (11:49)
[2021-11-20] MEDS ORDERED: HEPARIN SODIUM 1,000 UN/ML (10ML VL) ONE (11:49)
[2021-11-20] MEDS ORDERED: IV FLUID CONTINUATION 850 ML IV ONE (12:01)
[2021-11-20] MEDS ORDERED: MIDAZOLAM 2 MG/2 ML VIAL IV ONE (12:01)
[2021-11-20] MEDS ORDERED: fentaNYL (PF) 50 MCG/ML 5 ML AMP IV ONE (12:01)
[2021-11-20] MEDS ORDERED: LIDOCAINE 1% INJ 10MG/ML (20 ML MDV) SQ ONE (12:03)
[2021-11-20] MEDS ORDERED: VERAPAMIL SYRINGE (5 MG/10 ML) INTRAARTER ONE (12:05)
[2021-11-20] MEDS ORDERED: HEPARIN SODIUM 1,000 UN/ML (10ML VL) IV ONE (12:08)
[2021-11-20] MEDS ORDERED: IOPAMIDOL-370 125ML BTL INJ ONE (12:13)
[2021-11-20] MEDS ORDERED: RX INFO: IV CONTRAST WAS GIVEN 1 EACH MISC MISCELLANE PRN (13:04)
--- NOTE | 2021-11-20 13:06 | CC ---
CARDIAC CATHETERIZATION REPORT INDICATION: Non [id number] PR. PROCEDURE NOTE: After obtaining informed consent, left heart catheterization and coronary angiogram were performed via the right radial artery using size 4 right and left Leonidas catheters. Patient tolerated the procedure well without any obvious immediate complications. Patient received moderate conscious sedation. Total sedation time was 11 minutes. I obtained right radial artery access using modified Seldinger technique and under fluoroscopic guidance, Glidewire and catheters more floated into the ascending aorta using the standard precautions. Patient received 5 mg of verapamil and 4000 units of IV heparin as per protocol. A TR band was used for hemostasis at the end of the procedure. Note: Pulse ox was documented at the end of the procedure after applying the TR band, and it was 94. FINDINGS: HEMODYNAMICS: Left ventricular end-diastolic pressure is 7 mm. There is no significant gradient across the aortic valve. LEFT VENTRICULOGRAM: Left ventriculogram was not performed. ANGIOGRAPHIC DATA: Left main coronary artery. Left main coronary artery is a normal-sized vessel and is free of stenosis. It divides into left anterior descending coronary artery and circumflex coronary artery. There is mild nonobstructive plaque both in the LAD and circumflex, but there are no focal hemodynamically significant lesions noted. Right coronary artery is a large dominant vessel and is free of significant disease. CONCLUSIONS: 1. Mild nonobstructive coronary artery disease. 2. Normal left ventricular end-diastolic pressure. PLAN: I told the patient that his chest discomfort is noncardiac in origin and the troponin elevation is of unclear clinical significance. He will be discharged home this afternoon and will have followup with Dr. Monge, his primary tight cooper. MMODL / IJN: [id number] /
[2021-11-20] MEDS ORDERED: SODIUM CHLORIDE 0.9% 1,000 ML IV SCH (13:15)
[2021-11-20 14:53] VITALS: BP 138/73; PULSE 67; RESP 16; TEMP 98.1
--- NOTE | 2021-11-20 17:13 | ECHOF ---
Referral Reason:cp MEASUREMENTS -------- HEIGHT: 157.5 cm WEIGHT: 81.6 kg BP: IVSd: 1.5 cm (0.6 - 1.1) LVIDd: 5.0 cm (3.9 - 5.3) LVPWd: 1.6 cm (0.6 - 1.1) IVSs: 1.9 cm LVIDs: 3.5 cm LVPWs: 1.1 cm FINDINGS -------- Sinus rhythm. Echo done 08/20: Limited echo for cp. Overall left ventricular systolic function is low-normal with, an EF between 50 - 55 %. CONCLUSIONS -------- 1. Echo done 08/20: Limited echo for cp. 2. Overall left ventricular systolic function is low-normal with, an EF between 50 - 55 %. QUALITY ASSURANCE MONITOR BODY: Hillary Rubi RDCS
--- NOTE | 2021-11-20 18:36 | P.DS ---
Providers Date of admission: 11/20/21 13:22 Attending physician: Ravi Ross Consults: 11/19/21 20:14 Consult Physician Urgent Consulting Provider: Mike Kearns Consult Reason/Comments: cp Do you want consulting provider notified?: Yes Primary care physician: Ravi Ross - Discharge Diagnosis(es) (1) Chest pain Current Visit: Yes Status: Acute Hospital Course: Patient admitted for unstable angina. Cardiac cath done. No acute findings. DCed in stable condition. Patient Condition at Discharge: Stable Plan - Discharge Summary Discharge Rx Participant: Yes New Discharge Prescriptions: No Action Aspirin 81 mg PO DAILY Tadalafil [Cialis] 5 mg PO DAILY PRN PRN Reason: E.D. amLODIPine [Norvasc] 5 mg PO DAILY Discharge Medication List Aspirin 81 mg PO DAILY 08/12/21 [Rx] Tadalafil [Cialis] 5 mg PO DAILY PRN 11/19/21 [History] amLODIPine [Norvasc] 5 mg PO DAILY 11/19/21 [History] Follow up Appointment(s)/Referral(s): Abrahan Monge DO [STAFF PHYSICIAN] - 1 Week Ravi Ross MD [Primary Care Provider] - 1-2 days
[2021-11-21] MEDS ORDERED: HEPARIN SODIUM,PORCINE 10,000 UNIT in SODIUM CHLORIDE 0.9% 1,000 ML IRRIGATION PRN (07:00)
[2021-11-21] MEDS ORDERED: HEPARIN SODIUM,PORCINE 2,500 UNIT in SODIUM CHLORIDE 0.9% 250 ML IRRIGATION PRN (07:00)
== END 2021-11-20 23:59 | disposition home or self-care (01) | DRG 287 ==
LOC: EC 16:18 → 3SCARD 20:14 → OBSVTOIN 11-20 13:22
PROVIDERS: ADMIT Family Medicine; ATTEND Family Medicine
PROC: B2111ZZ Fluoroscopy of Multiple Coronary Arteries using Low Osmolar Contrast (ICD-10-PCS; 2021-11-20)
PROC: 4A023N7 Measurement of Cardiac Sampling and Pressure, Left Heart, Percutaneous Approach (ICD-10-PCS; principal; 2021-11-20 12:25)
DX: I25.110 Atherosclerotic heart disease of native coronary artery with unstable angina pectoris (principal); F12.90 Cannabis use, unspecified, uncomplicated; G40.909 Epilepsy, unspecified, not intractable, without status epilepticus; I10 Essential (primary) hypertension; I44.4 Left anterior fascicular block; Z20.822 Contact with and (suspected) exposure to COVID-19; I73.9 Peripheral vascular disease, unspecified; Z79.82 Long term (current) use of aspirin; Z79.899 Other long term (current) drug therapy; Z87.442 Personal history of urinary calculi; Z87.19 Personal history of other diseases of the digestive system; Z88.2 Allergy status to sulfonamides
CPT/HCPCS: 36415; 71046; 71275; 72158; 80053; 80061; 82150; 83690; 83735; 84484; 85025; 85379; 85610; 85730; 87635; 93005; 93308; 93458; 96374; 96375; 99285

== ENCOUNTER 2021-12-23 09:47 | Emergency (ER) | payer MEDICARE, BC ==
[2021-12-23 09:54] VITALS: TEMP 97.5
[2021-12-23] MEDS ORDERED: SODIUM CHLORIDE 0.9% 1,000 ML IV STA (10:13)
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
[2021-12-23 10:31] LABS: Basophils % (A) 0 %; Eosinophils # (A) 0.1 k/uL (0-0.7); Eosinophils % (A) 1 %; HCT 43.4 % (39.0-53.0); Lymphocytes # (A) 0.7 k/uL (1.0-4.8); Lymphocytes % (A) 7 %; MCH 29.8 pg (25.0-35.0); MCHC 32.2 g/dL (31.0-37.0); MCV 92.3 fL (80.0-100.0); Mean Platelet Volume 7.8; Monocytes # (A) 0.4 k/uL (0-1.0); Monocytes % (A) 4 %; Neutrophils # (A) 8.6 k/uL (1.3-7.7); Neutrophils % (A) 88 %; Platelet Count 251 k/uL (150-450); RDW 13.7 % (11.5-15.5); WBC 9.8 k/uL (3.8-10.6)
[2021-12-23 10:43] LABS: ALT 23 U/L (4-49); AST 30 U/L (17-59); African American GFR (CKD) >90 (>60 ml/min/1.73 sqM); Albumin 4.6 g/dL (3.5-5.0); Alcohol <10 mg/dL; Alkaline Phosphatase 92 U/L (38-126); Anion Gap 12 mmol/L; Blood Urea Nitrogen 13 mg/dL (9-20); Calcium 9.4 mg/dL (8.4-10.2); Carbon Dioxide 19 mmol/L (22-30); Chloride 104 mmol/L (98-107); Glucose 130 mg/dL (74-99); Magnesium 2.2 mg/dL (1.6-2.3); Non-African American GFR(CKD) 89 (>60 ml/min/1.73 sqM); Potassium 3.9 mmol/L (3.5-5.1); Sodium 135 mmol/L (137-145); Total Bilirubin 0.8 mg/dL (0.2-1.3); Total Protein 7.4 g/dL (6.3-8.2)
[2021-12-23 10:54] LABS: Cocaine Screen,Urine Not Detected (NotDetected); Opiate Screen,Urine Detected (NotDetected); Phencyclidine Screen,Urine Not Detected (NotDetected); Urn Cannabinoid Scrn Detected (NotDetected)
[2021-12-23 10:55] LABS: Amphetamine Screen,Urine Not Detected (NotDetected); Barbiturate Screen,Urine Not Detected (NotDetected); Benzodiazepines Screen,Urine Not Detected (NotDetected); Methadone Screen, Urine Not Detected (NotDetected); Oxycodone Screen, Urine Not Detected (NotDetected); Tricyclic Antidepressant,Urine Not Detected (NotDetected)
--- NOTE | 2021-12-23 10:56 | CT ---
EXAMINATION TYPE: CT brain cspine wo con DATE OF EXAM: 12/23/2021 COMPARISON: CT brain August 10, 2021 HISTORY: Seizures and fall CT DLP: 1349.1 mGycm. Automated Exposure Control for Dose Reduction was Utilized. TECHNIQUE: CT scan of the head and cervical spine are performed without contrast. FINDINGS: There is no acute intracranial hemorrhage or midline shift identified. Mild ventricular a nd sulcal prominence is redemonstrated. Sparks-white matter differentiation is maintained. Mild mucosal thickening in the ethmoid sinuses bilaterally remains present. The globes are intact. Cervical spine is visualized in its entirety from C1 through upper thoracic levels and demonstrates s coliotic curvature on coronal images without evidence of acute fracture or dislocation. Prevertebral soft tissue appears within normal limits. The C1-C2 articulation is within normal limits on the cor onal images. Vertebral body heights are maintained. Mild to moderate disc space narrowing C5-C6 leve l. Large anterior osteophytes mid to lower thoracic spine by well-defined lucency. Posterio r spur disc complexes efface the anterior thecal sac at C5-C6 and C6-C7 levels. Axial images show additional small posterior disc herniation effacing the anterior thecal sac at C3-C 4 level. Thyroid gland appears within normal limits. Lung apices show no pneumothorax. IMPRESSION: 1. There is no acute fracture or dislocation evident in the cervical spine. 2. No acute intracranial hemorrhage or midline shift is seen. No significant change from prior CT.
[2021-12-23 10:57] LABS: Appearance,Urine Clear (Clear); Bilirubin,Urine Negative (Negative); Blood,Urine Small (Negative); Color,Urine Light Yellow; Glucose,Urine (UA) 1+ (Negative); Ketones,Urine Negative (Negative); Leukocyte Esterase,Urine Negative (Negative); Mucus,Urine Rare /hpf; Nitrite,Urine Negative (Negative); PH, Urine 6.5 (5.0-8.0); Protein,Urine Trace (Negative); RBC,Urine <1 /hpf (0-5); Specific Gravity,Urine 1.012 (1.001-1.035); Squamous Epithelial Cell,Urine <1 /hpf (0-4); Urobilinogen,Urine <2.0 mg/dL (<2.0); WBC,Urine <1 /hpf (0-5)
[2021-12-23] MEDS ORDERED: levETIRAcetam 500 MG TAB PO STA (12:01)
[2021-12-23 12:23] VITALS: BP 165/85; PULSE 58; RESP 18
== END 2021-12-23 12:40 | disposition home or self-care (01) ==
LOC: EC 09:47
DX: G40.909 Epilepsy, unspecified, not intractable, without status epilepticus (principal); I10 Essential (primary) hypertension; F12.90 Cannabis use, unspecified, uncomplicated; Z79.82 Long term (current) use of aspirin; Z79.899 Other long term (current) drug therapy
CPT/HCPCS: 36415; 93005; 80053; 83735; 85025; 81001; 80306; 72125; 70450; 99284; 96360; 96361; G0480; 80320

== ENCOUNTER → 2022-02-17 | Outpatient (CLI) | payer MEDICARE, BC ==
--- NOTE | 2022-02-17 18:25 | US ---
EXAMINATION TYPE: US carotid duplex BILAT DATE OF EXAM: 02/17/2022 COMPARISON: US 2017 CLINICAL HISTORY: 66-year-old male G45.3 AMAUROSIS FUGAX, H53.9 VISUAL DISTURB, G45.9. TECHNIQUE: Carotid duplex ultrasound examination. Indirect Doppler criteria was utilized. EXAM MEASUREMENTS: RIGHT: Peak Systolic Velocity (PSV) cm/sec ----- Right CCA: 65.7 ----- Right ICA: 276.4 ----- Right ECA: 391.2 ICA/CCA ratio: 4.2 RIGHT: End Diastole cm/sec ----- Right CCA: 16.6 ----- Right ICA: 75.0 ----- Right ECA: 75.6 LEFT: Peak Systolic Velocity (PSV) cm/sec ----- Left CCA: 97.3 ----- Left ICA: 125.3 ----- Left ECA: 212.8 ICA/CCA ratio: 1.3 LEFT: End Diastole cm/sec ----- Left CCA: 20.2 ----- Left ICA: 39.7 ----- Left ECA: 27.0 VERTEBRALS (direction of flow): Right Vertebral: Antegrade Left Vertebral: Antegrade Rhythm: Normal Peripheral Vascular Tech notes: Elevated velocities - right proximal ICA, right proximal ECA and left proximal ECA Right ICA/CCA ratio 4.2 IMPRESSION: 1. Measurements indicate severe (greater than 70%) proximal right ICA stenosis. 2. Additional significant stenoses proximal bilateral ECAs, right greater than left. Criteria for Assigning % of Stenosis / Diameter reduction (Estimation based on the indirect measurements of the internal carotid artery velocities (ICA PSV). 1. Normal (no stenosis)=ICA PSV < 125 cm/s: ratio < 2.0: ICA EDV<40 cm/s. 2. Less than 50% stenosis=ICA PSV < 125 cm/s: ratio < 2.0: ICA EDV<40 cm/s. 3. 50 to 69% stenosis=ICA PSV of 125 to 230 cm/s: ration 2.0 ? 4.0: ICA EDV 40-100 cm/s. 4. Greater than 70% stenosis to near occlusion= ICA PSV > 230 cm/s: ratio > 4.0: ICA EDV > 100 cm/s. 5. Near occlusion= ICA PSV velocities may be low or undetectable: variable ratio and ICA EDV. 6. Total occlusion=unable to detect flow.
== END | disposition home or self-care (01) ==
LOC: RADUSWWP 14:20
PROVIDERS: ATTEND Psychiatry & Neurology Neurology
DX: I65.23 Occlusion and stenosis of bilateral carotid arteries (principal)
CPT/HCPCS: 93880

== ENCOUNTER → 2022-03-10 | Outpatient (CLI) | payer MEDICARE, BC ==
--- NOTE | 2022-03-11 05:01 | MR ---
EXAMINATION TYPE: MR angio head wo/neck wo/w con DATE OF EXAM: 03/10/2022 COMPARISON: None HISTORY: Stiff neck, abnormal carotid duplex, high grade Rt. ICA stenosis, TIA CONTRAST: Standard multiplanar, multisequence MRI departmental protocol images were obtained without contrast a nd with 9.7 mL intravenous Gadavist gadolinium contrast. There is arterial flow in the anterior middle and posterior cerebral arteries. There is arterial flow in both distal internal carotid arteries. There is arterial flow in the vertebrobasilar artery syste m. There is no flow demonstrated in the A1 segment of the right anterior cerebral artery. The anterio r cerebral arteries appear to fill only from the left side. No evidence of aneurysm. There is a beade d appearance of the right posterior cerebral artery. 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 There i s developmentally larger A1 segment of the left anterior cerebral artery. There is some narrowing of the proximal right posterior cerebral artery and 50% stenosis..
== END | disposition home or self-care (01) ==
LOC: RADMRIMAIN 09:03
PROVIDERS: ATTEND Psychiatry & Neurology Neurology
DX: I66.21 Occlusion and stenosis of right posterior cerebral artery (principal); Q28.3 Other malformations of cerebral vessels
CPT/HCPCS: 70544; 70549; A9585

== ENCOUNTER 2022-07-30 16:11 | Emergency (ER) | payer MEDICARE, BC ==
[2022-07-30 16:34] VITALS: TEMP 98.4
[2022-07-30] MEDS ORDERED: SODIUM CHLORIDE 0.9% 1,000 ML IV STA (17:58)
[2022-07-30] MEDS ORDERED: levETIRAcetam IV 1,000 MG in SALINE 1 100ML.BAG IVPB STA (18:24)
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
[2022-07-30 19:03] LABS: Basophils % (A) 0 %; Eosinophils % (A) 0 %; HCT 43.9 % (39.0-53.0); HGB 14.1 gm/dL (13.0-17.5); Lymphocytes # (A) 1.8 k/uL (1.0-4.8); Lymphocytes % (A) 18 %; MCHC 32.1 g/dL (31.0-37.0); MCV 90.4 fL (80.0-100.0); Mean Platelet Volume 7.9; Monocytes # (A) 0.6 k/uL (0-1.0); Monocytes % (A) 6 %; Neutrophils # (A) 7.7 k/uL (1.3-7.7); Neutrophils % (A) 75 %; Platelet Count 273 k/uL (150-450); RBC 4.85 m/uL (4.30-5.90); RDW 13.5 % (11.5-15.5); WBC 10.2 k/uL (3.8-10.6)
[2022-07-30 19:10] LABS: African American GFR (CKD) >90 (>60 ml/min/1.73 sqM); Anion Gap 12 mmol/L; Blood Urea Nitrogen 13 mg/dL (9-20); Calcium 9.7 mg/dL (8.4-10.2); Carbon Dioxide 24 mmol/L (22-30); Chloride 101 mmol/L (98-107); Glucose 102 mg/dL (74-99); Non-African American GFR(CKD) 89 (>60 ml/min/1.73 sqM); Sodium 137 mmol/L (137-145)
[2022-07-30 19:13] VITALS: PULSE 62; RESP 16
[2022-07-30 20:16] VITALS: BP 141/80
== END 2022-07-30 20:17 | disposition home or self-care (01) ==
LOC: EC 16:11
DX: R56.9 Unspecified convulsions (principal); I10 Essential (primary) hypertension; F12.90 Cannabis use, unspecified, uncomplicated; Z91.041 Radiographic dye allergy status; Z79.82 Long term (current) use of aspirin; Z79.899 Other long term (current) drug therapy; Z20.822 Contact with and (suspected) exposure to COVID-19
CPT/HCPCS: 36415; 93005; 80048; 83735; 85025; 87636; 99284; 96365; J1953

== ENCOUNTER 2023-11-13 10:03 | Emergency (ER) | payer MEDICARE, BC ==
[2023-11-13] MEDS ORDERED: HYDROmorphone 0.5 MG/0.5 ML SYRINGE IVP STA (10:26)
[2023-11-13] MEDS ORDERED: METOCLOPRAMIDE 5 MG/ML 2 ML VIAL IVP STA (10:26)
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
[2023-11-13 10:57] LABS: HCT 41.8 % (39.0-53.0); HGB 13.9 gm/dL (13.0-17.5); MCHC 33.2 g/dL (31.0-37.0); MCV 90.5 fL (80.0-100.0); Mean Platelet Volume 8.1; Platelet Count 225 k/uL (150-450); RBC 4.62 m/uL (4.30-5.90); RDW 12.9 % (11.5-15.5)
--- NOTE | 2023-11-13 11:18 | XR ---
EXAMINATION TYPE: XR knee complete LT DATE OF EXAM: 11/13/2023 11:10 AM CLINICAL INDICATION:Male, 68 years old with history of pain; COMPARISON: 12/19/2013. TECHNIQUE: XR knee complete LT; examined in Frontal, lateral and oblique projections. FINDINGS: No evidence of any acute osseous pathology, soft tissue swelling, or joint effusion is no yeny. Tricompartmental large osteophyte formation involving the femoral condyles, tibial plateau and ortiz la. Severe joint space narrowing. Atherosclerosis of the arterial vasculature. Findings are similar r emote fibular fracture. Stent graft tubing material visualized. There is a large joint effusion. Exop hytic osseous protrusion posterior aspect of the distal femur suggestive of osteochondroma. IMPRESSION: 1. No acute osseous pathology. 2. End-stage tricompartmental osteoarthritic changes.
[2023-11-13 11:24] LABS: ALT 21 U/L (4-49); AST 25 U/L (17-59); African American GFR (CKD) >90 (>60 ml/min/1.73 sqM); Albumin 4.5 g/dL (3.5-5.0); Alkaline Phosphatase 116 U/L (38-126); Anion Gap 11 mmol/L; Blood Urea Nitrogen 11 mg/dL (9-20); C Reactive Protein 5.5 mg/dL (<1.0); Calcium 10.2 mg/dL (8.4-10.2); Carbon Dioxide 25 mmol/L (22-30); Chloride 103 mmol/L (98-107); Glucose 129 mg/dL (74-99); Non-African American GFR(CKD) 84 (>60 ml/min/1.73 sqM); Potassium 3.7 mmol/L (3.5-5.1); Sodium 139 mmol/L (137-145); Total Bilirubin 2.2 mg/dL (0.2-1.3); Total Protein 7.3 g/dL (6.3-8.2); Uric Acid 5.5 mg/dL (3.5-8.5)
[2023-11-13] MEDS ORDERED: DEXAMETHASONE SOD PHOSPHATE 10 MG/ML 1 ML VIAL IVP STA (12:03)
[2023-11-13] MEDS ORDERED: HYDROmorphone 1 MG/ML 1 ML SYRINGE IVP STA (13:15)
[2023-11-13 13:58] VITALS: BP 134/69; PULSE 70; RESP 16; TEMP 98.1
[2023-11-13 15:28] LABS: Erythrocyte Sedimentation Rate 33 mm/Hr (0-20)
== END 2023-11-13 14:04 | disposition home or self-care (01) ==
LOC: EC 10:03
DX: M17.12 Unilateral primary osteoarthritis, left knee (principal); I10 Essential (primary) hypertension; F12.90 Cannabis use, unspecified, uncomplicated; Z79.82 Long term (current) use of aspirin; Z79.899 Other long term (current) drug therapy; Z91.041 Radiographic dye allergy status
CPT/HCPCS: 36415; 80053; 85652; 83605; 84550; 85027; 86140; 73562; 99284; 96374; 96375 ×2; 96376; J1100; J2765; J1170 ×2

== ENCOUNTER 2024-06-30 12:46 | Emergency (ER) | payer MEDICARE, BC ==
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
--- NOTE | 2024-06-30 13:37 | XR ---
EXAMINATION TYPE: XR forearm LT DATE OF EXAM: 06/30/2024 CLINICAL HISTORY: pain TECHNIQUE: Frontal and lateral images of the left forearm are obtained. COMPARISON: None. FINDINGS: There is no acute fracture/dislocation evident. The joint spaces appear within normal limi ts. The overlying soft tissue appears unremarkable. IMPRESSION: There is no acute fracture or dislocation. ICD 10 NO FRACTURE, INITIAL EVALUATION
--- NOTE | 2024-06-30 13:38 | XR ---
EXAMINATION TYPE: XR hand complete LT DATE OF EXAM: 06/30/2024 CLINICAL HISTORY: pain TECHNIQUE: Frontal, lateral and oblique images of the left hand are obtained. COMPARISON: None. FINDINGS: There is no acute fracture/dislocation evident. The joint spaces appear moderately narrowe d radiocarpal joint space with cystic change distal radius. Degenerative narrowing The overlying soft tissue appears unremarkable. IMPRESSION: There is no acute fracture or dislocation. ICD 10 NO FRACTURE, INITIAL EVALUATION
[2024-06-30 13:43] VITALS: RESP 18
[2024-06-30] MEDS: DIPH,PERTUS(ACELL)TETVAC-LF 0.5 ML VIAL IM ONE (14:29)
[2024-06-30 14:49] VITALS: BP 145/89; PULSE 65; TEMP 98
== END 2024-06-30 14:33 | disposition home or self-care (01) ==
LOC: EC 12:46
DX: S63.92XA Sprain of unspecified part of left wrist and hand, initial encounter (principal); Z91.041 Radiographic dye allergy status; Z98.890 Other specified postprocedural states; Z87.442 Personal history of urinary calculi; Z23 Encounter for immunization; W17.2XXA Fall into hole, initial encounter
CPT/HCPCS: 90471; 90715; 99283

== ENCOUNTER 2024-07-28 05:49 | Emergency (ER) | payer MEDICARE, BC ==
[2024-07-28 06:09] VITALS: RESP 18
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
[2024-07-28] MEDS: SODIUM CHLORIDE 0.9% 500 ML 500 ML IV STA (07:02)
--- NOTE | 2024-07-28 07:07 | XR ---
EXAMINATION TYPE: XR chest 2V DATE OF EXAM: 07/28/2024 COMPARISON: CTA chest November 19, 2021 HISTORY: Weakness. TECHNIQUE: Frontal and lateral views of the chest are obtained. FINDINGS: There is no focal air space opacity, pleural effusion, or pneumothorax seen. Cardiomegaly is present. The osseous structures are intact. IMPRESSION: Cardiomegaly without acute pulmonary process.
--- NOTE | 2024-07-28 07:12 | CT ---
EXAMINATION TYPE: CT brain cspine wo con, CT facial bones wo con DATE OF EXAM: 07/28/2024 COMPARISON: Prior trauma CT December 23, 2021 HISTORY: fall CT DLP: 418.6 (accession [id number]), 500 (accession [id number]) mGycm. Automated Exposure Control for Do se Reduction was Utilized. TECHNIQUE: CT scan of the head, facial bones, and cervical spine are performed without contrast. FINDINGS: There is no acute intracranial hemorrhage or midline shift identified. The ventricles an d sulci are within normal limits in size for patient's age. The calvarium is intact. The mandible is intact. Temporomandibular joints are maintained bilaterally. Zygomatic arches are int act. Nasal bones are intact. Orbital floors and crawford are intact. The globes are intact bilaterally. The pterygoid plates are intact. Paranasal sinuses are clear. Nasal septum is deviated to right of mi dline. Cervical spine is visualized in its entirety from C1 through upper thoracic levels and redemonstrated a dextroconvex scoliosis without evidence of acute fracture or dislocation. Prevertebral soft tissu e appears within normal limits. The C1-C2 articulation is unremarkable. Vertebral body heights are maintained. Persistent moderate disc space narrowing at C5-C6 and C6-C7 levels. Posterior calcified d isc herniation at C5-C6 level effaces anterior thecal sac. There are multilevel uncovertebral facet d egenerative changes bilaterally. Right-sided carotid stent is now noted. Lung apices are clear withou t pneumothorax. IMPRESSION: 1. There is no acute fracture or dislocation evident in the cervical spine. 2. No acute intracranial hemorrhage or midline shift is seen. 3. No acute displaced facial bone fracture.
[2024-07-28 07:28] LABS: Basophils # (A) 0.1 k/uL (0-0.2); Basophils % (A) 1 %; Eosinophils # (A) 0.3 k/uL (0-0.7); Eosinophils % (A) 5 %; HCT 36.7 % (39.0-53.0); HGB 12.1 gm/dL (13.0-17.5); Lymphocytes # (A) 1.3 k/uL (1.0-4.8); Lymphocytes % (A) 22 %; MCH 30.3 pg (25.0-35.0); MCHC 33.1 g/dL (31.0-37.0); MCV 91.6 fL (80.0-100.0); Mean Platelet Volume 8.9; Monocytes # (A) 0.4 k/uL (0-1.0); Monocytes % (A) 7 %; Neutrophils # (A) 3.8 k/uL (1.3-7.7); Neutrophils % (A) 64 %; Platelet Count 185 k/uL (150-450); RBC 4.01 m/uL (4.30-5.90); RDW 13.7 % (11.5-15.5); WBC 5.9 k/uL (3.8-10.6)
[2024-07-28 07:35] LABS: INR 0.9 (<1.2); Prothrombin Time 10.4 sec (10.0-12.5)
[2024-07-28 07:55] LABS: ALT 16 U/L (4-49); AST 24 U/L (17-59); African American GFR (CKD) >90 (>60 ml/min/1.73 sqM); Albumin 3.8 g/dL (3.5-5.0); Alkaline Phosphatase 65 U/L (38-126); Anion Gap 6 mmol/L; Blood Urea Nitrogen 18 mg/dL (9-20); Calcium 9.5 mg/dL (8.4-10.2); Carbon Dioxide 28 mmol/L (22-30); Chloride 106 mmol/L (98-107); Glucose 101 mg/dL (74-99); Magnesium 2.1 mg/dL (1.6-2.3); Non-African American GFR(CKD) 86 (>60 ml/min/1.73 sqM); Potassium 3.9 mmol/L (3.5-5.1); Sodium 140 mmol/L (137-145); Total Bilirubin 0.9 mg/dL (0.2-1.3)
[2024-07-28 10:57] VITALS: BP 149/69; PULSE 83; TEMP 98.3
== END 2024-07-28 11:06 | disposition home or self-care (01) ==
LOC: EC 05:49
CPT/HCPCS: 36415; 70450; 70486; 71046; 72125; 80053; 80177; 83735; 84484; 85025; 85610; 85730; 93005; 99285

== ENCOUNTER 2025-03-26 09:20 | Observation (INO) | payer MEDICARE, BC ==
[2025-03-26 09:45] LABS: Basophils # (A) 0.08 10*3/uL (0.00-0.10); Basophils % (A) 1.1 %; Eosinophils # (A) 0.18 10*3/uL (0.04-0.35); Eosinophils % (A) 2.5 %; HCT 42.4 % (39.6-50.0); HGB 13.9 g/dL (13.0-17.0); Lymphocytes # (A) 1.39 10*3/uL (0.90-5.00); Lymphocytes % (A) 19.4 %; MCHC 32.8 g/dL (32.0-37.0); MCV 88.3 fL (80.0-97.0); Mean Platelet Volume 10.3 fL (9.5-12.2); Monocytes # (A) 0.58 10*3/uL (0.20-1.00); Monocytes % (A) 8.1 %; Neutrophils # (A) 4.93 10*3/uL (1.80-7.70); Neutrophils % (A) 68.8 %; Platelet Count 234 10*3/uL (140-440); RDW 13.9 % (11.5-14.5); WBC 7.17 10*3/uL (4.50-10.00)
[2025-03-26] MEDS: predniSONE 20 MG TAB PO STA (09:57)
--- NOTE | 2025-03-26 09:58 | XR ---
EXAMINATION TYPE: XR chest 2V DATE OF EXAM: 03/26/2025 9:47 AM COMPARISON: Chest radiographs from 07/28/2024 TECHNIQUE: XR chest 2V Frontal and lateral views of the chest. CLINICAL INDICATION:Male, 69 years old with history of altered mental status; FINDINGS: Lungs/Pleura: There is no evidence of pleural effusion, focal consolidation, or pneumothorax. Pulmonary vascularity: Unremarkable. Heart/mediastinum: Cardiomediastinal silhouette is enlarged and stable. Musculoskeletal: Multiple level degenerative disc disease changes seen throughout the spine. IMPRESSION: Cardiomegaly without acute pulmonary process. [facility], , 03/26/2025 9:56 AM
--- NOTE | 2025-03-26 10:01 | CT ---
EXAMINATION TYPE: CT brain wo con CT DLP: 1068.4 mGycm, Automated exposure control for dose reduction was used. DATE OF EXAM: 03/26/2025 9:53 AM COMPARISON: CT Brain and cspine facial bones 07/28/2024 CLINICAL INDICATION:Male, 69 years old with history of Neuro deficit, acute, stroke suspected, Right facial droop numbness to face no numbness to right arm or leg no pronator drift. c/o numbness tingli ng to left arm. TECHNIQUE: Brain: Multiple axial CT images of the brain were obtained without IV contrast. . Coronal and sagitta l reformats reviewed. FINDINGS: Brain: Extra-axial spaces: No abnormal extra-axial fluid collections. Ventricular system: Within normal limits Cerebral parenchyma: No acute intraparenchymal hemorrhage or mass effect. The de leon-white junction is well differentiated. Cerebellum: Unremarkable. Mass effect: No evidence of midline shift. Intracranial vasculature: Atherosclerotic calcifications of the intracranial vessels. Soft tissues: Normal. Calvarium/osseous structures: No depressed skull fracture. Paranasal sinuses and mastoid air cells: Mastoid air cells are clear. Nasal septal deviation to the r ight. Minimal mucosal thickening of the inferior right frontal sinus and bilateral ethmoid sinuses. Visualized orbits: Orbital contents are intact. IMPRESSION: No acute intracranial process. [facility], , 03/26/2025 9:58 AM
[2025-03-26 10:05] LABS: Anion Gap 9 mmol/L; Blood Urea Nitrogen 13 mg/dL (9-20); Carbon Dioxide 24 mmol/L (22-30); Chloride 108 mmol/L (98-107); Glucose 110 mg/dL (74-99); Sodium 141 mmol/L (137-145)
[2025-03-26 10:06] LABS: ALT 19 U/L (4-49); African American GFR (CKD) >90 (>60 ml/min/1.73 sqM); Albumin 4.5 g/dL (3.5-5.0); Calcium 9.6 mg/dL (8.4-10.2); Creatine Kinase 93 U/L (55-170); Non-African American GFR(CKD) 87 (>60 ml/min/1.73 sqM); Total Bilirubin 1.6 mg/dL (0.2-1.3); Total Protein 7.3 g/dL (6.3-8.2)
[2025-03-26] MEDS: valACYclovir HCL 1,000 MG TABLET PO STA (10:08)
[2025-03-26 10:09] LABS: INR 0.9 (<1.2); Partial Thromboplastin Time 22.9 sec (22.0-30.0); Prothrombin Time 10.3 sec (10.0-12.5)
[2025-03-26 10:18] LABS: AST 26 U/L (17-59); Alkaline Phosphatase 94 U/L (38-126); Potassium 4.3 mmol/L (3.5-5.1)
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
[2025-03-26] MEDS ORDERED: NALOXONE 0.4 MG/ML 1 ML VIAL IV PRN (12:48)
[2025-03-26] MEDS: ASPIRIN 325 MG TAB PO STA (13:19)
[2025-03-26] MEDS ORDERED: ARTIFICIAL TEARS OINTMENT 3.5 GM TUBE BOTH EYES PRN (14:14)
[2025-03-26] MEDS ORDERED: LORazepam 1 MG TAB PO PRN (14:14)
[2025-03-26] MEDS: valACYclovir HCL 1,000 MG TABLET PO SCH (15:18)
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
[2025-03-26] MEDS: ATORVASTATIN 40 MG TAB PO SCH (20:08)
[2025-03-26] MEDS: amLODIPine 5 MG TAB PO SCH (20:08)
[2025-03-26] MEDS: diphenhydrAMINE 25 MG CAP PO SCH (20:08)
[2025-03-26] MEDS: levETIRAcetam 250 MG TAB PO SCH (20:34)
[2025-03-27] MEDS: predniSONE 20 MG TAB PO SCH (08:09)
[2025-03-27] MEDS: CLOPIDOGREL 75 MG TAB PO SCH (08:10)
[2025-03-27] MEDS: ASPIRIN 81 MG PO SCH (08:11)
[2025-03-27 08:34] LABS: HCT 40.1 % (39.6-50.0); HGB 12.9 g/dL (13.0-17.0); MCV 88.5 FL (80.0-97.0); RBC 4.53 X 10*6/uL (4.40-5.60); WBC 11.31 X 10*3/uL (4.50-10.00)
[2025-03-27 08:35] LABS: Basophils # (A) 0.03 X 10*3/uL (0.00-0.10); Basophils % (A) 0.3 %; Eosinophils # (A) 0.01 X 10*3/uL (0.04-0.35); Eosinophils % (A) 0.1 %; Lymphocytes # (A) 1.74 X 10*3/uL (0.90-5.00); Lymphocytes % (A) 15.4 %; MCH 28.5 pg (27.0-32.0); MCHC 32.2 g/dL (32.0-37.0); Mean Platelet Volume 10.6 FL (9.5-12.2); Monocytes # (A) 0.98 X 10*3/uL (0.20-1.00); Monocytes % (A) 8.7 %; NRBC Per 100 WBC 0 X 10*3/uL (0.00-0.01); Neutrophils # (A) 8.51 X 10*3/uL (1.80-7.70); Neutrophils % (A) 75.1 %; Platelet Count 240 X 10*3/uL (140-440); RDW 13.8 % (11.5-14.5)
[2025-03-27 08:52] LABS: BUN/Creat Ratio 17.38 Ratio (12.00-20.00); Blood Urea Nitrogen 13.9 mg/dL (9.0-27.0); Calcium 9.1 mg/dL (8.7-10.3); Carbon Dioxide 22.4 mmol/L (21.6-31.8); Chloride 107 mmol/L (96-109); Glucose 129 mg/dL (70-110); Potassium 3.5 mmol/L (3.5-5.5); Sodium 140 mmol/L (135-145)
--- NOTE | 2025-03-27 09:18 | P.PN ---
Subjective Progress Note Date: 03/27/25 This is a 69-year-old male who presented to the emergency room with a right sided facial droop which had started the previous day. Patient is unable to close his right eye. He is also complaining of drooling from his mouth whenever he tried to eat or drink anything. Patient seen this morning sitting up in bed resting comfortably. He still has the right sided facial droop and is unable to close his right eye. Nursing staff did patch his eye overnight. Neurology and cardiology are on board. Plan is for MRI of the brain today. Objective - Vital Signs Vital signs: Vital Signs Temp 98.3 F 03/27/25 07:00 Pulse 73 03/27/25 07:00 Resp 16 03/27/25 07:00 BP 135/68 03/27/25 07:00 Pulse Ox 99 03/27/25 07:00 FiO2 Intake & Output 03/26/25 03/27/25 03/27/25 18:59 06:59 18:59 Intake Total 118 Balance 118 Weight 75.75 kg Intake: Oral 118 Other: # Voids 2 1 - Constitutional General appearance: Present: cooperative, no acute distress - EENT Eyes: Present: PERRLA - Neck Neck: Present: normal ROM. Absent: lymphadenopathy, rigidity - Respiratory Respiratory: bilateral: CTA - Cardiovascular Heart sounds: normal: S1, S2 - Gastrointestinal General gastrointestinal: Present: soft. Absent: tenderness - Integumentary Integumentary: Present: normal, normal turgor - Neurologic Neurologic Comment(s): Right sided facial droop present - Psychiatric Psychiatric: Present: A&O x's 3 - Labs CBC & Chem 7: 03/27/25 04:02 03/27/25 04:02 Labs: Abnormal Lab Results - Last 24 Hours (Table) 03/26/25 03/27/25 03/27/25 Range/Units 09:39 04:02 04:02 WBC 11.31 H (4.50-10.00) X 10*3/uL Hgb 12.9 L (13.0-17.0) g/dL Neutrophils # 8.51 H (1.80-7.70) X 10*3/uL Eosinophils # 0.01 L (0.04-0.35) X 10*3/uL Chloride 108 H (98-107) mmol/L Glucose 110 H 129 H (74-99) mg/dL Total Bilirubin 1.6 H (0.2-1.3) mg/dL Assessment and Plan (1) Facial droop Current Visit: Yes Status: Acute Code(s): R29.810 - FACIAL WEAKNESS SNOMED Code(s): 79466784 (2) New onset a-fib Current Visit: Yes Status: Acute Code(s): I48.91 - UNSPECIFIED ATRIAL FIBRILLATION SNOMED Code(s): 36181547 (3) History of seizure Current Visit: Yes Status: Acute Code(s): Z87.898 - PERSONAL HISTORY OF OTHER SPECIFIED CONDITIONS SNOMED Code(s): 8094095000 Plan: Order an echo. Await MRI results. Appreciate multiple consultants. Patient seen and evaluated by nurse practitioner, physician in agreement with plan.
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
[2025-03-27] MEDS: APIXABAN 5 MG TAB PO SCH (17:04)
--- NOTE | 2025-03-27 19:43 | CA ---
Transthoracic Echo Report Name: Kev Castro Age: 69 Gender: M : 1955 Exam Date: 03/27/2025 17:51 Exam Location: [facility] Ht (in): 71 Wt (lb): 167 Ordering Physician: Ravi Ross MD Attending/Referring Phys: Product Applications Scientist Ginger Winters RDCS Procedure CPT: Indications: afib Cardiac Hx: Technical Quality: Good Contrast 1: Total Dose (mL): Contrast 2: Total Dose (mL): MEASUREMENTS (Male / Female) Normal Values 2D ECHO LV Diastolic Diameter PLAX 4.3 cm 4.2 - 5.9 / 3.9 - 5.3 cm LV Systolic Diameter PLAX 2.6 cm IVS Diastolic Thickness 1.4 cm 0.6 - 1.0 / 0.6 - 0.9 cm LVPW Diastolic Thickness 1.7 cm 0.6 - 1.0 / 0.6 - 0.9 cm LV Relative Wall Thickness 0.7 LVOT Diameter 2.2 cm Aortic Root Diameter 3.2 cm LV Diastolic Volume MOD BP 100.0 cm??? 67 - 155 / 56 - 104 cm??? LV Systolic Volume MOD BP 41.0 cm??? 22 - 58 / 19 - 49 cm??? LV Ejection Fraction MOD BP 59.0 % >= 55 % LV Cardiac Index MOD BP 2329.3 cm???/min???m??? LV Diastolic Volume MOD 4C 98.6 cm??? LV Systolic Volume MOD 4C 38.5 cm??? LV Ejection Fraction MOD 4C 60.9 % LV Cardiac Index MOD 4C 2373.2 cm???/min???m??? LV Diastolic Length 4C 7.9 cm LV Systolic Length 4C 6.5 cm LV Diastolic Volume MOD 2C 100.7 cm??? LV Systolic Volume MOD 2C 41.6 cm??? LV Ejection Fraction MOD 2C 58.8 % LV Cardiac Index MOD 2C 2337.4 cm???/min???m??? LV Diastolic Length 2C 7.8 cm LV Systolic Length 2C 6.8 cm Ascending Aorta Diameter 3.7 cm DOPPLER AV Peak Velocity 175.8 cm/s AV Peak Gradient 12.4 mmHg AV Mean Velocity 133.3 cm/s AV Mean Gradient 7.6 mmHg AV Velocity Time Integral 30.8 cm LVOT Peak Velocity 137.8 cm/s LVOT Peak Gradient 7.6 mmHg LVOT Velocity Time Integral 24.6 cm LVOT Stroke Volume 96.6 cm??? LVOT Stroke Volume Index 49.5 ml/m??? LVOT Cardiac Index 3816.4 cm???/min???m??? AV Area Cont Eq vti 3.1 cm??? AV Area Cont Eq pk 3.1 cm??? PV Peak Velocity 121.1 cm/s PV Peak Gradient 5.9 mmHg FINDINGS Left Ventricle Left ventricular ejection fraction is estimated at 55-60 %. Severely increased LV wall thickness. Left ventricular cavity size normal. No obvious regional wall motion abnormalities. Right Ventricle Mild right ventricular dilatation. Normal right ventricular free wall motion. Unable to estimate the right ventricular systolic pressure. Right Atrium Moderate right atrial dilatation. Left Atrium Severe left atrial dilatation. Mitral Valve Mitral valve thickened. No evidence for mitral valve prolapse. No mitral stenosis. Trace to mild mitral regurgitation. Aortic Valve Trileaflet aortic valve. No aortic valve stenosis or regurgitation. Tricuspid Valve Structurally normal tricuspid valve. No tricuspid stenosis. Trace tricuspid regurgitation. Pulmonic Valve Structurally normal pulmonic valve. No pulmonic stenosis. No pulmonic regurgitation. Pericardium No pericardial effusion. Aorta Normal size aortic root and proximal ascending aorta. CONCLUSIONS Left ventricular ejection fraction 55 to 60% Severely increased left ventricular wall thickness. Consider infiltrative disease if clinically indicated Trace to mild mitral regurgitation Trace tricuspid regurgitation No pericardial effusion Previewed by: Dr. Abrahan Monge DO (Electronically Signed) Final Date: 27 March 2025 19:42
[2025-03-27] MEDS ORDERED: ARTIFICIAL TEARS-HYPROMELLOSE DROPS 15 ML BTL RIGHT EYE PRN (20:45)
[2025-03-28 01:20] VITALS: RESP 16
--- NOTE | 2025-03-28 08:43 | P.PN ---
Subjective Progress Note Date: 03/28/25 This is a 69-year-old male who presented to the emergency room with a right sided facial droop which had started the previous day. Patient is unable to close his right eye. He is also complaining of drooling from his mouth whenever he tried to eat or drink anything. Patient seen this morning sitting up in bed resting comfortably. He still has the right sided facial droop and is unable to close his right eye. Nursing staff did patch his eye overnight. Neurology and cardiology are on board. Plan is for MRI of the brain today. 03/28/2025 Patient seen and evaluated sitting up in bed this morning resting comfortably. He continues to patch his eye overnight. His eyelid does close about usp as compared to not at all yesterday. Right sided facial droop still present. MRI is scheduled for 230 this afternoon. Cardiology started patient on eliquis yesterday. Objective - Vital Signs Vital signs: Vital Signs Temp 98.4 F 03/28/25 01:20 Pulse 70 03/28/25 01:20 Resp 16 03/28/25 01:20 BP 119/64 03/28/25 01:20 Pulse Ox 98 03/28/25 01:20 FiO2 Intake & Output 03/27/25 03/28/25 03/28/25 18:59 06:59 18:59 Intake Total 236 Balance 236 Intake: Oral 236 Other: Voiding Method Toilet # Voids 3 1 - Constitutional General appearance: Present: cooperative, no acute distress - EENT Eyes: Present: PERRLA - Neck Neck: Present: normal ROM. Absent: lymphadenopathy, rigidity - Respiratory Respiratory: bilateral: CTA - Cardiovascular Heart sounds: normal: S1, S2 - Gastrointestinal General gastrointestinal: Present: soft. Absent: tenderness - Integumentary Integumentary: Present: normal, normal turgor - Musculoskeletal Musculoskeletal Comment(s): right side facial droop present - Psychiatric Psychiatric: Present: A&O x's 3 - Labs CBC & Chem 7: 03/27/25 04:02 03/27/25 04:02 Labs: Abnormal Lab Results - Last 24 Hours (Table) 03/27/25 03/27/25 Range/Units 04:02 16:12 Glucose 129 H (70-110) mg/dL Hemoglobin A1c 6.3 H (<=6.0) % Assessment and Plan (1) Facial droop Current Visit: Yes Status: Acute Code(s): R29.810 - FACIAL WEAKNESS SNOMED Code(s): 18012067 (2) New onset a-fib Current Visit: Yes Status: Acute Code(s): I48.91 - UNSPECIFIED ATRIAL FIBRILLATION SNOMED Code(s): 83398476 (3) History of seizure Current Visit: Yes Status: Acute Code(s): Z87.898 - PERSONAL HISTORY OF OTHER SPECIFIED CONDITIONS SNOMED Code(s): 5343615570 Plan: Await MRI results. Appreciate multiple consultants. Patient seen and evaluated by nurse practitioner, physician in agreement with plan.
[2025-03-28 11:36] LABS: LDL Cholesterol,Calculated 51.9 mg/dL (0.0-131.0); VLDL Calculation 14.04 mg/dL (5.00-40.00)
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
--- NOTE | 2025-03-28 15:25 | MR ---
INDICATION: Patient age:Male; 69 years old; Reason for study: right sided facial droop; PHH. COMPARISON: CT brain 03/26/2025, CT brain C-spine facial bones 07/28/2024, MRA head and neck 03/10/2022, CT brain C-spine 12/23/2021, MRI brain 08/11/2021, CT brain 08/10/2021, 02/25/2017, 08/15/2013. TECHNIQUE: Multi planar, multi sequence imaging was performed through the brain without the administr ation of intravenous contrast. FINDINGS: The de leon-white junctions, ventricular system, basal cisterns appear unremarkable. Age-appropriate mil d cerebral volume loss. Diffusion-weighted imaging shows no evidence of restricted diffusion to sugge st acute/subacute infarct. Intracranial arterial flow voids are maintained. Midline structures show n o abnormality. Few scattered foci of high T2/FLAIR signal intensity are seen within the supratentoria l periventricular and subcortical white matter. The susceptibility weighted images show a single focu s of blooming artifact within the left temporal lobe consistent with prior hemosiderin deposition. Ex ample includes a right frontal subcortical 5 mm focus (series 601, image 25). The bilateral mesial te mporal lobes appear symmetric without abnormality. After administration of gadolinium, no abnormal en hancement is seen. The bone marrow signal is within normal limits. The paranasal sinuses and globes are unremarkable. N diamond septal deviation to the right. IMPRESSION: 1. No evidence of intracranial mass or acute/subacute infarct. 2. Nonspecific minimal white matter changes, likely related to small vessel ischemic disease. [facility], , 03/28/2025 3:22 PM
[2025-03-28 16:13] VITALS: BP 132/75; PULSE 96; TEMP 98.5
--- NOTE | 2025-03-28 18:05 | P.DS ---
Providers Date of admission: 03/26/25 12:48 Attending physician: Ravi Ross Consults: 03/26/25 12:48 Consult Physician Urgent Consulting Provider: Duong Motta Consult Reason/Comments: right sided facial droop, suspected bells palsy Do you want consulting provider notified?: Already Contacted Consult Physician Urgent Consulting Provider: [facility] Consult Reason/Comments: new onset afib Do you want consulting provider notified?: Yes Primary care physician: Ravi Ross [facility] Course: Chief complaint Right facial droop. History of present illness Kev Castro, a 69-year-old male, was admitted due to a right facial droop. Neurology was consulted, and an MRI was performed, which did not reveal any significant intracranial issues. Parks's palsy was diagnosed. He was started on prednisone and Valtrex. He has a history of peripheral artery disease (PAD) and was placed on Eliquis, with Plavix being discontinued. Due to the inability to completely close his right eye secondary to facial palsy, he was given ocular lubrication drops. ROS is normal unless otherwise stated in the HPI or in [employer]. Past medical history History of peripheral artery disease (PAD). Diagnosed with Parks's palsy during this admission. Physical exam - HEENT: Right-sided facial droop observed. 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 Imaging results - MRI did not show significant intracranial problem. 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 - No significant intracranial problem identified on MRI. - Placed on Eliquis due to history of peripheral artery disease (PAD). Plan - Discharge with Valtrex 1000 mg T.I.D. for 7 to 14 days to manage Parks's palsy. - Schedule a follow-up appointment with the doctor in approximately 3 to 4 days to monitor progress. - Arrange a follow-up with an hospitality house supervisor to address eye-related issues due to facial palsy. - Maintain eye lubrication and use a patch during sleep to protect the right eye, which cannot be completely closed. - Administer ocular lubrication drops to prevent dryness and irritation in the affected eye. Prescription - Valtrex 1000 mg, TID, for 7 to 14 days - Eliquis, related to PAD history - Ocular lubrication drops, for incomplete right eye closure due to facial palsy Appointments - Follow-up appointment in 3 to 4 days with us. - Follow-up appointment with ophthalmology. Visit diagnoses suggestions (2) - Parks's palsy [G51.0] - Peripheral vascular disease, unspecified [I73.9] Patient Condition at Discharge: Stable Plan - Discharge Summary Discharge Rx Participant: No New Discharge Prescriptions: New Apixaban [Eliquis] 5 mg PO BID #60 tab Artificial Tears-Hypromellose [Artificial Tear Drops] 2 drops RIGHT EYE TID PRN #10 ml PRN Reason: Dry Eye(S) valACYclovir HCL [Valtrex] 1,000 mg PO TID #42 tab Continue LORazepam [Ativan] 1 mg PO DAILY PRN PRN Reason: Seizures Atorvastatin [Lipitor] 40 mg PO HS levETIRAcetam [Keppra] 1,000 mg PO DIRECTED amLODIPine [Norvasc] 5 mg PO BID Aspirin EC [Ecotrin Low Dose] 81 mg PO DAILY diphenhydrAMINE HCL [Benadryl] 25 mg PO BID levETIRAcetam [Keppra] 750 mg PO BID Discontinued Clopidogrel [Plavix] 75 mg PO DAILY Discharge Medication List amLODIPine [Norvasc] 5 mg PO BID 11/19/21 [History] Aspirin EC [Ecotrin Low Dose] 81 mg PO DAILY 12/23/21 [History] Atorvastatin [Lipitor] 40 mg PO HS 03/26/25 [History] LORazepam [Ativan] 1 mg PO DAILY PRN 03/26/25 [History] diphenhydrAMINE HCL [Benadryl] 25 mg PO BID 03/26/25 [History] levETIRAcetam [Keppra] 1,000 mg PO DIRECTED 03/26/25 [History] levETIRAcetam [Keppra] 750 mg PO BID 03/26/25 [History] Apixaban [Eliquis] 5 mg PO BID #60 tab 03/27/25 [Rx] Artificial Tears-Hypromellose [Artificial Tear Drops] 2 drops RIGHT EYE TID PRN #10 ml 03/28/25 [Rx] valACYclovir HCL [Valtrex] 1,000 mg PO TID #42 tab 03/28/25 [Rx] Follow up Appointment(s)/Referral(s): Abrahan Monge DO [STAFF PHYSICIAN] - 1 Week Ravi Ross MD [Primary Care Provider] - 1-2 days
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
== END 2025-03-28 18:42 | disposition home or self-care (01) ==
LOC: EC 09:20 → 6NMEDSUR 12:48
PROVIDERS: ADMIT Family Medicine; ATTEND Family Medicine
DX: G51.0 Bell's palsy (principal); I48.0 Paroxysmal atrial fibrillation; I11.9 Hypertensive heart disease without heart failure; G40.909 Epilepsy, unspecified, not intractable, without status epilepticus; I73.9 Peripheral vascular disease, unspecified; I25.10 Atherosclerotic heart disease of native coronary artery without angina pectoris; I65.29 Occlusion and stenosis of unspecified carotid artery; M21.371 Foot drop, right foot; I08.1 Rheumatic disorders of both mitral and tricuspid valves; H02.203 Unspecified lagophthalmos right eye, unspecified eyelid; F12.90 Cannabis use, unspecified, uncomplicated; Z79.82 Long term (current) use of aspirin; Z79.02 Long term (current) use of antithrombotics/antiplatelets; Z79.899 Other long term (current) drug therapy; Z91.041 Radiographic dye allergy status; Z87.828 Personal history of other (healed) physical injury and trauma; Z86.19 Personal history of other infectious and parasitic diseases; Z95.828 Presence of other vascular implants and grafts; Z98.1 Arthrodesis status
CPT/HCPCS: 99285; 36415; 93005; 93306; 80061; 80053; 80048; 84443; 82607; 82550; 82746; 82164; 84484; 85025 ×2; 85610; 85730; 86618; 83883; 83036; 71046; 70450; 70551; G0378 ×3; J7512 ×3